=== PATIENT | male | born 1965 | race Caucasian/White ===

== ENCOUNTER 2017-09-29 10:12 | Day surgery (SDC) | payer OTHER ==
[2017-09-21 10:59] VITALS: BMI 19.0
--- NOTE | 2017-09-21 11:34 | PAT Medication Instructions ---
Service Date Sep 21, 2017. Current Home Medication List Naproxen (Aleve), 2 TABS PO DAILY PRN for headache Medication Instructions For Your Scheduled Surgery - Hold the following medications per your surgeon's instructions: Naproxen (Aleve), 2 TABS PO DAILY PRN for headache If you have any questions please call us at [phone] or [phone] or [phone]
--- NOTE | 2017-09-21 12:08 | DIAGNOSTIC IMAGING REPORT ---
CHEST 2 VIEWS ROUTINE CLINICAL HISTORY: Preoperative chest COMPARISON STUDY: No previous studies for comparison. FINDINGS: The cardiac and mediastinal contours are normal. There is no evidence of focal pulmonary consolidation. There is no evidence of failure. No pleural effusions are visualized.[ The patient is mildly hyperinflated IMPRESSION: No active disease in the chest. Electronically signed by: Jono Peraza M.D. 09/21/2017 12:06 PM Dictated Date/Time: 09/21/2017 12:06 PM
[2017-09-21 12:18] LABS: BASO % 1.4 %; COMPLETE YES; EOS % 1.5 %; HEMATOCRIT 41.1 % (42-52); IG% 0.1 %; LYMPH % 28.1 %; LYMPH ABS # 2.01 K/uL (1.2-3.4); MEAN CELL VOLUME 92.4 fL (80-100); MEAN CORPUSCULAR HEMOGLOBIN 31.9 pg (25-34); MEAN CORPUSCULAR HGB CONC 34.5 g/dl (32-36); MEAN PLATELET VOLUME 9.6 fL (7.4-10.4); MONO % 7.8 %; NEUT % 61.1 %; PLATELET COUNT 261 K/uL (130-400); RED BLOOD COUNT 4.45 M/uL (4.7-6.1); WHITE BLOOD COUNT 7.15 K/uL (4.8-10.8)
[2017-09-21 14:10] LABS: BUN/CREATININE RATIO 23.3 (10-20); CALCIUM 8.8 mg/dl (8.5-10.1); CREATININE 0.76 mg/dl (0.60-1.40); POTASSIUM 4.1 mmol/L (3.5-5.1)
[~2017-09-29] VITALS: Ht 180.3 cm; Wt 64.0 kg
[~2017-09-29 10:12] MED LIST: CIPROFLOXACIN / D5W 400 MG IV SCH; LACTATED RINGER'S 1000ML 1,000 ML IV SCH; NAPR1TAB9 PO
[2017-09-29 10:35] VITALS: BP 111/63; PULSE 59; TEMP 36.5; O2SAT 99; Ht 180.3 cm; Wt 64.0 kg
[2017-09-29] MEDS ORDERED: PROPOFOL IV EMULSION 10 MG/ML 20 ML VIAL IV ONE (10:42)
[2017-09-29] MEDS ORDERED: DEXAMETHASONE SOD INJ 4 MG/ML VIAL ONE (10:42)
[2017-09-29] MEDS ORDERED: ONDANSETRON INJ 2 MG/ML 2 ML VIAL ONE (10:42)
[2017-09-29] MEDS ORDERED: LIDOCAINE HCL 2% 2 ML VIAL (20MG/ML) ONE (10:42)
[2017-09-29] MEDS ORDERED: MIDAZOLAM HCL 1 MG/ML 2ML VIAL ONE (10:43)
[2017-09-29] MEDS ORDERED: FENTANYL CITRATE INJ 50 MCG/1 ML 2 ML VIAL ONE (10:43)
[2017-09-29] MEDS ORDERED: NALOXONE HCL 0.4 MG/1 ML VIAL/CARP IV PRN (12:15)
[2017-09-29] MEDS ORDERED: ATROPINE SULFATE 0.1 MG/ML 5ML SYR IV PRN (12:15)
[2017-09-29] MEDS ORDERED: FLUMAZENIL 0.1 MG/1 ML 10 ML VIAL IV PRN (12:15)
[2017-09-29] MEDS ORDERED: PROMETHAZINE HCL INJ 12.5 MG in SODIUM CHLORIDE 0.9% 50ML 50 ML IV PRN (12:15)
[2017-09-29] MEDS ORDERED: LABETALOL HCL IV 5 MG/ML 20ML IV PRN (12:15)
[2017-09-29] MEDS ORDERED: ONDANSETRON INJ 2 MG/ML 2 ML VIAL IV PRN (12:15)
[2017-09-29] MEDS ORDERED: EpHEDrine SULFATE INJ 50 MG/ML AMP IV PRN (12:15)
[2017-09-29] MEDS ORDERED: FENTANYL CITRATE INJ 50 MCG/1 ML 2 ML VIAL IV PRN (12:15)
--- NOTE | 2017-09-29 13:07 | History & Physical Bridge Note ---
H&P Re-Evaluation Bridge Note: I have examined the patient, reviewed the History & Physical and in the interval since the performance of the History & Physical I have noted the following changes of clinical significance: No changes noted
[2017-09-29] MEDS ORDERED: CONRAY 30% 150ML BOTTLE ONE (13:15)
[2017-09-29] MEDS ORDERED: CIPR-255 PO (13:55)
[2017-09-29] MEDS ORDERED: ACET-749 PO (13:55)
[2017-09-29] MEDS ORDERED: PHEN-775 PO (13:55)
[2017-09-29] MEDS ORDERED: PHENAZOPYRIDINE HCL 200 MG TAB PO STA (13:57)
[2017-09-29] MEDS ORDERED: SODIUM CHLORIDE 0.9% 1000ML 1,000 ML IV SCH (13:57)
--- NOTE | 2017-09-29 13:57 | Discharge Instructions ---
Discharge Instructions Date of Service Sep 29, 2017. Admission Reason for Admission: Irritable voiding pattern Discharge Discharge Diagnosis / Problem: irritable voiding pattern Discharge Goals Goal(s): Decrease discomfort, Improve function, Increase independence, Improve disease control, Prevent Disease Progression Activity Recommendations Activity Limitations: resume your previous activity Lifting Limitations: none Exercise/Sports Limitations: none May Resume Sexual Activity: when tolerated Shower/Bathe: no limitations Driving or Machine Use: resume 1 day after discharge . Instructions / Follow-Up Instructions / Follow-Up Please keep your previously scheduled follow up appointment. Discharge Diet Recommended Diet: Regular Diet Procedures Procedures Performed: Cystoscopy, Bladder Biopsies, Fulgeration Pending Studies Studies pending at discharge: no Medical Emergencies . Who to Call and When: Medical Emergencies: If at any time you feel your situation is an emergency, please call 911 immediately. . Non-Emergent Contact Non-Emergency issues call your: Urologist Call Non-Emergent contact if: you have a fever, temperature is above 101.5, your pain is not controlled, your pain is worsening . . "Provider Documentation" section prepared by Karlo Cabral. . VTE Core Measure Inpt VTE Proph given/why not?: Treatment not indicated [place] Drug Monitoring Program Search Results: patient reviewed within database, no issues identified
[2017-09-29] MEDS ORDERED: OXYCODONE/ACETAMINOPHEN 5-325 TAB PO PRN ×2 (14:00)
--- NOTE | 2017-09-29 14:03 | [facility] Operative Report ---
Operative Report Operative Date Sep 29, 2017. Pre-Operative Diagnosis Hematuria, Urinary Urgency Post-Operative Diagnosis Hematuria, Urinary Urgency Procedure(s) Performed Cystoscopy, Bladder Biopsies, Fulgeration Surgeon Dr. Navarro Solar System Designer Surgeon(s) none Estimated Blood Loss 0 cc Findings As per dictation Specimens A: Right lateral wall bladder biopsy B: Posterior wall bladder biopsy Drains none Anesthesia Gen. Complication(s) None Disposition Recovery Room / PACU (stable) Indications Significant irritative voiding dysfunction - with findings on in office cystoscopy concerning for malignancy Description of Procedure The patient was identified in the preoperative holding area, consents reviewed and completed, the patient received appropriate preoperative antibiotics, and was transported to the operating suite. Upon arrival he received general anesthesia. He was placed in dorsal lithotomy position and sterilely prepped and draped in standard fashion. I begin by passing a 24 Green[place]ic resectoscope visual obturator and 30 lens. Full inspection of the bladder was carried out utilizing both a 30 and 70 lens. This revealed no papillary tumors, however he has an erythematous patch adjacent to the right ureteral orifice. There is slight edema of this area without erosion or ulceration. The area in total was proximally 2-3 cm across. He additionally has a separate area on the posterior bladder wall with a similar appearance - 1 cm. After inspecting these areas, I exchanged the visual obturator for a biopsy device. Biopsies were taken from the right lateral wall and sent as a single specimen. Additional biopsies were taken from the posterior wall - sent as a separate specimen. I then passed a loop and fulgurated the base of the biopsy sites as well as the remaining erythematous areas. Full inspection was carried out again evaluating the entire bladder to ensure that there were no retained or missed areas of concern. Hemostasis was excellent, and the bladder was decompressed and the case concluded. He was extubated and taken to the PACU in stable condition I attest to the content of the Intraoperative Record and any orders documented therein. Any exceptions are noted below.
[2017-09-29 14:42] VITALS: BP 126/78; PULSE 58; TEMP 36.5; O2SAT 97
--- NOTE | 2017-09-29 14:58 | Anesthesiology Progress Note ---
Anesthesia Post Op Note Date & Time Sep 29, 2017 at 14:58 Vital Signs Pain Intensity: 3 Vital Signs Past 12 Hours Date Time Temp Pulse Resp B/P (MAP) Pulse Ox O2 Delivery O2 Flow Rate FiO2 09/29/17 14:35 36.1 48 13 127/82 96 Nasal Cannula 09/29/17 14:30 36.1 56 15 132/81 97 Nasal Cannula 09/29/17 14:20 51 12 121/87 98 Nasal Cannula 09/29/17 14:15 76 14 98 Nasal Cannula 09/29/17 14:05 42 12 119/67 100 Oxymask 10 09/29/17 13:57 36.6 42 10 98/63 100 Oxymask 10 09/29/17 10:35 36.5 59 18 111/63 (79) 99 Room Air Notes Mental Status: alert / awake / arousable, participated in evaluation Pt Amnestic to Procedure: Yes Nausea / Vomiting: adequately controlled Pain: adequately controlled Airway Patency, RR, SpO2: stable & adequate BP & HR: stable & adequate Hydration State: stable & adequate Anesthetic Complications: no major complications apparent
[2017-09-29 15:15] VITALS: BP 118/77; PULSE 64; TEMP 36.5; O2SAT 98
== END 2017-09-29 15:30 | disposition home or self-care (01) ==
LOC: C.ACU 10:12
PROVIDERS: ATTEND Urology
DX: D09.0 Carcinoma in situ of bladder (principal); R39.15 Urgency of urination; R30.0 Dysuria; R31.29 Other microscopic hematuria; N40.0 Benign prostatic hyperplasia without lower urinary tract symptoms; J44.9 Chronic obstructive pulmonary disease, unspecified; Z87.442 Personal history of urinary calculi; Z87.440 Personal history of urinary (tract) infections; Z83.79 Family history of other diseases of the digestive system; Z82.49 Family history of ischemic heart disease and other diseases of the circulatory system; Z84.1 Family history of disorders of kidney and ureter; Z83.3 Family history of diabetes mellitus; F17.210 Nicotine dependence, cigarettes, uncomplicated

== ENCOUNTER → 2017-10-28 | Outpatient (CLI) | payer OTHER ==
[~2017-10-28] MED LIST changes: +ACET-749 PO; +CIPR-255 PO; -CIPROFLOXACIN / D5W 400 MG IV SCH; -LACTATED RINGER'S 1000ML 1,000 ML IV SCH
== END | disposition home or self-care (01) ==
LOC: C.LABPBG 15:34
PROVIDERS: ATTEND Nurse Practitioner Adult Health
DX: R30.0 Dysuria (principal)

== ENCOUNTER → 2018-01-04 | Outpatient (CLI) | payer OTHER | END | disposition home or self-care (01) | LOC: C.PATHSPEC 11:17 | PROVIDERS: ATTEND Urology | DX: D09.0 Carcinoma in situ of bladder (principal) ==

== ENCOUNTER 2020-08-26 12:16 | Inpatient (IN) ==
--- NOTE | 2020-08-26 12:43 | Emergency Department Note ---
History of Present Illness General Chief complaint: Back Injury/Pain Stated complaint: VERY BAD BACK PAIN Time Seen by Provider: 08/26/20 12:31 History of Present Illness Maximum Pain Intensity: 9 This is a 55-year-old male that presents to the emergency department via private vehicle with complaints of "very bad back pain". The patient notes a history of bladder cancer. Last biopsy was 3 months ago. He notes that a few days ago he began with atraumatic right lower back pain. It does not radiate. It is not radicular in nature. It does not traverse into the legs. No lower extremity weakness, bowel or bladder incontinence, numbness or tingling in the genital region. Overall discomfort appears worse with movement and ambulation. No symptoms consistent with cauda equina syndrome. Pain was worse last night and he notes that it was excruciating discomfort. Home Medications Home Medications Medication Instructions Recorded Confirmed Type naproxen sodium 220 mg capsule 220 mg PO BID PRN cap 07/05/19 08/26/20 History tamsulosin 0.4 mg PO HS 06/20/20 08/26/20 History ammonium lactate 12 % lotion See Rx Instructions TOPICAL BID 07/13/20 08/26/20 Rx PRN #396 g Allergies Allergy/AdvReac Type Severity Reaction Status Date / Time No Known Drug Allergies Allergy Verified 08/21/20 11:19 Past Med/Surg History Medical History Benign prostatic hyperplasia with urinary obstruction Dysuria Hemorrhoids History of bladder cancer h/o BCG treatment Migraine headache Nodule of middle lobe of right lung Pulmonary emphysema Does not use any inhalers, pt feels asymptomatic Urinary urgency Vitamin D deficiency Surgical History History of appendectomy History of biopsy of bladder History of colonoscopy History of cystoscopy History of esophagogastroduodenoscopy (EGD) Family History Father Coronary heart disease Sister Cardiovascular disease S/P coronary artery stent placement Mother Kidney disease COPD (chronic obstructive pulmonary disease) Gallbladder disease Brother Kidney stones Hypertension Grandmother (Maternal) Diabetes Other No family history of adverse response to anesthesia Social History Smoking Status: Former smoker Second Hand Exposure: No; Do You Dip or Chew Tobacco: No; Tobacco Cessation Education Requested by Patient: No Hx Alcohol Use: No Hx Substance Use: No Preferred Language: Ghanaian Communication Ability: Effective Manager Forms Required: No Beliefs That Will Affect Care: None marital status: Current Living Situation: Spouse current occupational status: employed 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 Other Information That Helps Us Care for You: No Feels Safe at Home: Yes Safety Concerns: Feels Safe At This Time Childhood Exposure to Second-Hand Smoke: Yes Dental Care, Regularly: Yes Physical Activity Frequency: Does not Exercise Seatbelt Use: always Sunscreen Use: Yes Assistive Devices: None Assistive Devices Comment: dentures at home Review of Systems A total of 10 systems reviewed and were otherwise negative Physical Exam Vital Signs Vital Signs - 24 hr 08/26/20 12:22 08/26/20 13:53 08/26/20 15:55 Temperature 36.5 C Temperature Source Oral Pulse Rate 96 H Pulse Rate [Finger] 82 80 Pulse Rate from SpO2 Sensor Respiratory Rate 20 20 16 Respiratory Effort / Characteristics Non-Labored Non-Labored Spontaneous Non-Labored Spontaneous Respiratory Depth Normal Normal Normal Respiratory Pattern Regular Regular Blood Pressure 121/79 Blood Pressure [Right Arm] 147/86 H 134/80 Blood Pressure Mean 93 Blood Pressure Mean [Right Arm] 106 98 Blood Pressure Position Sitting Pulse Oximetry 98 97 97 Oxygen Delivery Method Room Air Room Air Room Air Sepsis Recent Fever Within 48 Hours No Sepsis New/Unexplained Change in Mental Status No Sepsis Action Taken by Nursing No Action Required 08/26/20 16:30 Temperature Temperature Source Pulse Rate 81 Pulse Rate [Finger] Pulse Rate from SpO2 Sensor 80 Respiratory Rate 13 Respiratory Effort / Characteristics Respiratory Depth Respiratory Pattern Blood Pressure 129/82 Blood Pressure [Right Arm] Blood Pressure Mean 93 Blood Pressure Mean [Right Arm] Blood Pressure Position Pulse Oximetry 97 Oxygen Delivery Method Sepsis Recent Fever Within 48 Hours Sepsis New/Unexplained Change in Mental Status Sepsis Action Taken by Nursing VITAL SIGNS - Vital signs and nursing notes were reviewed. Stable and afebrile. GENERAL -55-year-old male appearing his stated age who is in no acute distress. Communicates well with provider and answers questions appropriately. SKIN - Without rashes. HEAD - NC/AT. EYES - Sclera anicteric. LUNGS - Chest wall symmetric without accessory muscle use, intercostals retractions, or central cyanosis. Normal vesicular breath sounds CTA B/L. No wheezes, rales, or rhonchi appreciated. CARDIAC - RRR with S1/S2. No murmur, rubs, or gallops appreciated. ABDOMEN - Abdominal contour normal without pulsations or visible masses. BS normoactive all four quadrants. No tenderness, palpable masses, hepatosplenomegaly, or ascites noted. MUSCULOSKELETAL: No reproducible tenderness palpation overlying the paraspinous musculature of the spine or spinous processes. EXTREMITIES - No clubbing or peripheral cyanosis. No pretibial edema present. + 5/5 strength noted in UE/LE bilaterally. NEUROLOGIC - Cranial nerves II through XII grossly intact. PSYCH - A&O, and cooperates fully with examiner. Pt is very pleasant and interacts well with examiner. Course Administered Medications Sodium Chloride (Nss 1000ml) 1,000 mls @ 100 mls/hr IV .Q10H DIA Stop: 08/27/20 15:02 Last Admin: 08/26/20 19:55 Dose: 100 mls/hr Documented by: [id number] Tamsulosin HCl (Tamsulosin Hcl 0.4 Mg Cap) 0.4 mg PO HS DIA Stop: 09/25/20 20:59 Last Admin: 08/26/20 20:46 Dose: 0.4 mg Documented by: [id number] Discontinued Medications Ceftriaxone Sodium (Rocephin) 1,000 mg in 50 mls @ 100 mls/hr IV NOW STA Stop: 08/26/20 15:57 Last Infusion: 08/26/20 16:30 Dose: 0 mls/hr Documented by: [id number] Admin: 08/26/20 16:00 Dose: 100 mls/hr Documented by: [id number] Ioversol (Ioversol 100ml) 94 ml IV ONCE ONE Stop: 08/26/20 14:01 Last Admin: 08/26/20 14:00 Dose: 94 ml Documented by: [id number] Morphine Sulfate (Morphine Sulfate 4 Mg/Ml 1 Ml Carp\\Vial) 4 mg IV NOW STA Stop: 08/26/20 13:15 Last Admin: 08/26/20 13:47 Dose: 4 mg Documented by: [id number] Morphine Sulfate (Morphine Sulfate 4 Mg/Ml 1 Ml Carp\\Vial) 4 mg IV NOW STA Stop: 08/26/20 18:12 Last Admin: 08/26/20 18:19 Dose: 4 mg Documented by: [id number] Ondansetron HCl (Ondansetron Inj 2 Mg/Ml 2 Ml Vial) 4 mg IV NOW STA Stop: 08/26/20 13:15 Last Admin: 08/26/20 13:47 Dose: 4 mg Documented by: [id number] Medical Decision Making Laboratory Data Result diagrams: 08/26/20 13:05 08/26/20 13:05 Lab Results 08/26/20 08/26/20 08/26/20 Range/Units 13:05 13:05 13:05 WBC 10.96 H (4.8-10.8) K/uL RBC 4.45 L (4.7-6.1) M/uL Hgb 14.1 (14.0-18.0) g/dL Hct 41.4 L (42-52) % MCV 93.0 (80-100) fL MCH 31.7 (25-34) pg MCHC 34.1 (32-36) g/dL RDW Std Deviation 44.5 (36.4-46.3) fL RDW Coeff of Collin 13.1 (11.5-14.5) % Plt Count 263 (130-400) K/uL MPV 9.9 (7.4-10.4) fL Immature Gran % (Auto) 0.2 % Neut % (Auto) 83.2 % Lymph % (Auto) 7.4 % [facility] % (Auto) 8.8 % Eos % (Auto) 0.1 % Baso % (Auto) 0.3 % Neut # (Auto) 9.13 H (1.4-6.5) K/uL Lymph # (Auto) 0.81 L (1.2-3.4) K/uL [facility] # (Auto) 0.96 H (0.11-0.59) K/uL Eos # (Auto) 0.01 (0-0.5) K/uL Baso # (Auto) 0.03 (0-0.2) K/uL Immature Gran # (Auto) 0.02 (0.00-0.02) K/uL Sodium 137 (136-145) mmol/L Potassium 3.9 (3.5-5.1) mmol/L Chloride 106 (98-107) mmol/L Carbon Dioxide 27 (21-32) mmol/L Anion Gap 4.0 (3-11) BUN 17 (7-18) mg/dl Creatinine 1.07 (0.6-1.4) mg/dl Est Cr Clr Drug Dosing 73.2 ml/min Est GFR ( Amer) 88.8 Est GFR (Non-Af Amer) 76.7 BUN/Creatinine Ratio 16.3 (10-20) Glucose 123 H (70-99) mg/dl Calcium 9.6 (8.5-10.1) mg/dl Magnesium 2.2 (1.8-2.4) mg/dl Total Bilirubin 0.5 (0.2-1) mg/dl AST 17 (15-37) U/L ALT 16 (12-78) U/L Alkaline Phosphatase 112 (45-117) U/L Total Protein 8.2 (6.4-8.2) gm/dl Albumin 3.9 (3.4-5.0) gm/dl Globulin 4.3 H (2.5-4.0) gm/dl Albumin/Globulin Ratio 0.9 (0.9-2) Lipase 60 L (73-393) U/L Urine Color Yellow Urine Appearance Turbid A (Clear) Urine pH 5.0 (4.5-7.5) Ur Specific [place] 1.020 (1.000-1.030) Urine Protein 2+ H (Negative) Urine Glucose (UA) Negative (Negative) Urine Ketones Negative (Negative) Urine Blood 3+ H (Negative) Urine Nitrite Positive A (Negative) Urine Bilirubin Negative (Negative) Urine Urobilinogen Negative (Negative) Ur Leukocyte Esterase 2+ H (Negative) Urine WBC (Auto) >30 H (0-5) /hpf Urine RBC (Auto) 10-30 H (0-4) /hpf U Hyaline Cast (Auto) 1-5 (0-5) /lpf U Epithel Cells (Auto) 5-10 H (0-5) /lpf Urine Bacteria (Auto) 4+ H (Negative) COVID-19 Eval Order Hepatitis C Ab Screen (Neg) SARS-CoV-2, RNA, NAAT (NEGATIVE) 08/26/20 08/26/20 08/26/20 Range/Units 13:05 16:00 16:00 WBC (4.8-10.8) K/uL RBC (4.7-6.1) M/uL Hgb (14.0-18.0) g/dL Hct (42-52) % MCV (80-100) fL MCH (25-34) pg MCHC (32-36) g/dL RDW Std Deviation (36.4-46.3) fL RDW Coeff of Collin (11.5-14.5) % Plt Count (130-400) K/uL MPV (7.4-10.4) fL Immature Gran % (Auto) % Neut % (Auto) % Lymph % (Auto) % [facility] % (Auto) % Eos % (Auto) % Baso % (Auto) % Neut # (Auto) (1.4-6.5) K/uL Lymph # (Auto) (1.2-3.4) K/uL [facility] # (Auto) (0.11-0.59) K/uL Eos # (Auto) (0-0.5) K/uL Baso # (Auto) (0-0.2) K/uL Immature Gran # (Auto) (0.00-0.02) K/uL Sodium (136-145) mmol/L Potassium (3.5-5.1) mmol/L Chloride (98-107) mmol/L Carbon Dioxide (21-32) mmol/L Anion Gap (3-11) BUN (7-18) mg/dl Creatinine (0.6-1.4) mg/dl Est Cr Clr Drug Dosing ml/min Est GFR ( Amer) Est GFR (Non-Af Amer) BUN/Creatinine Ratio (10-20) Glucose (70-99) mg/dl Calcium (8.5-10.1) mg/dl Magnesium (1.8-2.4) mg/dl Total Bilirubin (0.2-1) mg/dl AST (15-37) U/L ALT (12-78) U/L Alkaline Phosphatase (45-117) U/L Total Protein (6.4-8.2) gm/dl Albumin (3.4-5.0) gm/dl Globulin (2.5-4.0) gm/dl Albumin/Globulin Ratio (0.9-2) Lipase (73-393) U/L Urine Color Urine Appearance (Clear) Urine pH (4.5-7.5) Ur Specific [place] (1.000-1.030) Urine Protein (Negative) Urine Glucose (UA) (Negative) Urine Ketones (Negative) Urine Blood (Negative) Urine Nitrite (Negative) Urine Bilirubin (Negative) Urine Urobilinogen (Negative) Ur Leukocyte Esterase (Negative) Urine WBC (Auto) (0-5) /hpf Urine RBC (Auto) (0-4) /hpf U Hyaline Cast (Auto) (0-5) /lpf U Epithel Cells (Auto) (0-5) /lpf Urine Bacteria (Auto) (Negative) [facility] (Neg) SARS-CoV-2, RNA, NAAT NEGATIVE (NEGATIVE) Imaging Data Radiologist's Impression: CT abd pelvis IV con only CLINICAL HISTORY: Low back pain. History of bladder carcinoma. COMPARISON STUDY: 11/06/2017 TECHNIQUE: Patient was scanned in a dynamic helical fashion during intravenous administration of 54 cc of Optiray 320. A dose lowering technique was utilized adhering to the principles of ALARA. CT DOSE: 541.14 mGy.cm FINDINGS: Lower chest: The heart is normal in size and configuration, without pericardial effusion. The lung bases and pleural spaces are clear. Liver: The contrast-enhanced liver is normal in size, contour, and attenuation. There is no intrahepatic biliary ductal dilatation. The hepatic veins and portal veins are patent. Gallbladder: Unremarkable. Spleen: Normal in size and attenuation. Pancreas: Unremarkable. Adrenal glands: Unremarkable. Kidneys: There is a diminished right-sided nephrogram. There is right-sided hydronephrosis and hydroureter. There is mild uroepithelial enhancement. No calculi are visualized. There is soft tissue density at the level of the distal right ureter. Neoplasm cannot be excluded. Urological consultation is recommended in follow-up. Bowel: There are no transition zones to indicate bowel obstruction. The appendix appears normal. There is no evidence of acute diverticulitis. There is moderate right colonic stool. Peritoneum: There is no intraperitoneal free air or abdominal ascites. Vasculature: The abdominal aorta is normal in course and caliber. Adenopathy: None. Pelvic viscera: There is prostatomegaly. There is bladder wall thickening. Skeletal structures: No destructive osseous lesions are seen. IMPRESSION: 1. Right-sided hydronephrosis and hydroureter. There is a slightly diminished right-sided nephrogram and mild right-sided perinephric stranding 2. Subtle right-sided uroepithelial enhancement. Coexistent infection cannot be excluded 3. No obstructing calculi identified. There is right ureteral soft tissue prominence at the level of the ureter vesicle junction, and neoplasm cannot be excluded. Urological consultation is recommended in follow-up 4. Bladder wall thickening and prostatomegaly 5. No evidence of bowel obstruction. No evidence of free air. Normal appendix. No evidence of acute diverticulitis. ACT 112: Negative or not required by law. Electronically signed by: Jono Peraza M.D. 08/26/2020 2:[address] lumbar spine wo con CT DOSE: CLINICAL HISTORY: Low back pain. TECHNIQUE: Helical images were acquired in transverse plane. Reformatted sagittal and coronal images were reviewed. A dose lowering technique was utilized adhering to the principles of ALARA. CONTRAST: No contrast was administered COMPARISON STUDY: None. There is right-sided hydronephrosis and hydroureter FINDINGS: L1-2 level: There is no evidence of significant disc bulge or focal herniation. There is no evidence of spinal or foraminal stenosis. L2-3 level: There is no evidence of significant disc bulge or focal herniation. There is no evidence of spinal or foraminal stenosis. L3-4 level: There is a mild circumferential disc bulge with slight flattening of the anterior thecal sac. There is no significant foraminal narrowing L4-5 level: There is a mild circumferential disc bulge with mild flattening of the anterior thecal sac. There is no significant foraminal narrowing L5-S1 level: There is a minor circumferential disc bulge. There is minimal flattening of the anterior thecal sac. No bony destructive lesions are visualized. There are no fractures. IMPRESSION: 1. Right-sided hydronephrosis and hydroureter 2. No fractures or subluxations identified 3. Mild degenerative changes with mild multilevel disc bulges ACT 112: Negative or not required by law. Electronically signed by: Jono Peraza M.D. 08/26/2020 2:24 PM [facility] Narrative Patient was seen and evaluated as above in room B12. Review was performed of nursing notes and vital signs. I did review pertinent previous visits and patient history. After obtaining a thorough history and physical examination the above work up was performed. He presents to us today with atraumatic right low back pain. In the setting of known bladder malignancy. Vital signs stable. CT scan abdomen pelvis obtained as well as recon of the L-spine. There is concern for UTI/hydronephrosis/obstructive change without ureteral calculi seen therefore cannot rule out neoplasm causing this obstruction. There is white blood cell count elevation minimally at 10.96 without significant anemia. No emergent metabolic disturbance. Urinalysis is concerning for that of UTI. I discussed the finding with the on-call urologist, Dr. Navarro. Patient will require further work-up in the inpatient versus outpatient setting. I discussed this with the patient. Given the degree of pain, requiring IV pain medication, UTI in the setting of obstructive findings it is felt that further evaluation and management in inpatient setting is warranted. A rapid COVID test was recommended by urology pending likely patient requiring cystoscopy. This will likely occur on Thursday of this week. Patient happy with plan of care. Case discussed with the hospitalist. Please refer to further documentation regarding his stay. He was empirically treated with IV Rocephin for the infection. Case was discussed with the attending physician. GCS: 15 In the evaluation and treatment of this patient the following differential diagnosis entertained: Fracture, dislocation, subluxation, cauda equina s yndrome, AAA, diverticulitis, appendicitis, torsion, osteomyelitis, piriformis syndrome, strain, sprain, urinary tract infection, malignancy, among others. Impression & Plan UTI (urinary tract infection), Low back pain, Hydronephrosis with infection Discharge Plan Visit Data Chief Complaint: Back Injury/Pain Stated Complaint: VERY BAD BACK PAIN ED Provider: James Kamara ED Midlevel Provider: Dio Weiner Discharge Problem: UTI (urinary tract infection), Low back pain, Hydronephrosis with infection Patient Disposition: Admitted As Inpatient Condition: Good Discharge Instructions Interventions: ED Discharge Assessment Last Done: 08/26/20 18:20
[2020-08-26 13:14] LABS: Basophils # (auto) 0.03 K/uL (0-0.2); Basophils % (auto) 0.3 %; Eosinophils # (auto) 0.01 K/uL (0-0.5); Eosinophils % (auto) 0.1 %; Hematocrit (blood only) 41.4 % (42-52); Hemoglobin 14.1 g/dL (14.0-18.0); Immature Granulocytes # (auto) 0.02 K/uL (0.00-0.02); Immature Granulocytes % (auto) 0.2 %; Lymphocytes # (auto) 0.81 K/uL (1.2-3.4); Lymphocytes % (auto) 7.4 %; Mean Corpuscular Hemoglobin 31.7 pg (25-34); Mean Corpuscular Hgb Conc 34.1 g/dL (32-36); Mean Platelet Volume 9.9 fL (7.4-10.4); Monocytes # (auto) 0.96 K/uL (0.11-0.59); Monocytes % (auto) 8.8 %; Neutrophils # (auto) 9.13 K/uL (1.4-6.5); Neutrophils % (auto) 83.2 %; Platelet Count 263 K/uL (130-400); RDW Coefficient of Variation 13.1 % (11.5-14.5); RDW Standard Deviation 44.5 fL (36.4-46.3); Red Blood Count 4.45 M/uL (4.7-6.1); White Blood Count 10.96 K/uL (4.8-10.8)
[2020-08-26] MEDS ORDERED: MoRPHine SULFATE 4 MG/ML 1 ML CARP\\VIAL IV STA ×2 (13:14→18:11)
[2020-08-26] MEDS ORDERED: ONDANSETRON INJ 2 MG/ML 2 ML VIAL IV STA (13:14)
[2020-08-26 13:21] LABS: Appearance Urine Turbid (Clear); Bacteria Urine Automated 4+ (Negative); Bilirubin Urine Negative (Negative); Blood Urine 3+ (Negative); Color Urine Yellow; Glucose Urine UA Negative (Negative); Ketones Urine Negative (Negative); Leukocyte Esterase Urine 2+ (Negative); Nitrite Urine Positive (Negative); Protein Urine 2+ (Negative); Urobilinogen Urine Negative (Negative); WBC Urine Automated >30 /hpf (0-5)
[2020-08-26 13:37] LABS: Albumin Level 3.9 gm/dl (3.4-5.0); BUN Creatinine Ratio 16.3 (10-20); Calcium 9.6 mg/dl (8.5-10.1); Creatinine Clr Calc Pharmacy 73.2 ml/min; Est GFR (African American) 88.8; Est GFR (Non-African American) 76.7; Magnesium 2.2 mg/dl (1.8-2.4); Potassium 3.9 mmol/L (3.5-5.1)
[2020-08-26 13:40] LABS: Albumin Globulin Ratio 0.9 (0.9-2); Bilirubin,Total 0.5 mg/dl (0.2-1); Globulin 4.3 gm/dl (2.5-4.0); Total Protein 8.2 gm/dl (6.4-8.2)
[2020-08-26] MEDS ORDERED: IOVERSOL 100ml IV ONE (14:00)
--- NOTE | 2020-08-26 14:24 | CT Scan Report ---
CT abd pelvis IV con only CLINICAL HISTORY: Low back pain. History of bladder carcinoma. COMPARISON STUDY: 11/06/2017 TECHNIQUE: Patient was scanned in a dynamic helical fashion during intravenous administration of 54 c c of Optiray 320. A dose lowering technique was utilized adhering to the principles of ALARA. CT DOSE: 541.14 mGy.cm FINDINGS: Lower chest: The heart is normal in size and configuration, without pericardial effusion. The lung ba ses and pleural spaces are clear. Liver: The contrast-enhanced liver is normal in size, contour, and attenuation. There is no intrahepa tic biliary ductal dilatation. The hepatic veins and portal veins are patent. Gallbladder: Unremarkable. Spleen: Normal in size and attenuation. Pancreas: Unremarkable. Adrenal glands: Unremarkable. Kidneys: There is a diminished right-sided nephrogram. There is right-sided hydronephrosis and hydrou reter. There is mild uroepithelial enhancement. No calculi are visualized. There is soft tissue densi ty at the level of the distal right ureter. Neoplasm cannot be excluded. Urological consultation is r ecommended in follow-up. Bowel: There are no transition zones to indicate bowel obstruction. The appendix appears normal. Ther e is no evidence of acute diverticulitis. There is moderate right colonic stool. Peritoneum: There is no intraperitoneal free air or abdominal ascites. Vasculature: The abdominal aorta is normal in course and caliber. Adenopathy: None. Pelvic viscera: There is prostatomegaly. There is bladder wall thickening. Skeletal structures: No destructive osseous lesions are seen. IMPRESSION: 1. Right-sided hydronephrosis and hydroureter. There is a slightly diminished right-sided nephrogram and mild right-sided perinephric stranding 2. Subtle right-sided uroepithelial enhancement. Coexistent infection cannot be excluded 3. No obstructing calculi identified. There is right ureteral soft tissue prominence at the level of the ureter vesicle junction, and neoplasm cannot be excluded. Urological consultation is recommended in follow-up 4. Bladder wall thickening and prostatomegaly 5. No evidence of bowel obstruction. No evidence of free air. Normal appendix. No evidence of acute d iverticulitis. ACT 112: Negative or not required by law. Electronically signed by: Jono Peraza M.D. 08/26/2020 2:22 PM
--- NOTE | 2020-08-26 14:26 | CT Scan Report ---
CT lumbar spine wo con CT DOSE: CLINICAL HISTORY: Low back pain. TECHNIQUE: Helical images were acquired in transverse plane. Reformatted sagittal and coronal images were reviewed. A dose lowering technique was utilized adhering to the principles of ALARA. CONTRAST: No contrast was administered COMPARISON STUDY: None. There is right-sided hydronephrosis and hydroureter FINDINGS: L1-2 level: There is no evidence of significant disc bulge or focal herniation. There is no evidence of spinal or foraminal stenosis. L2-3 level: There is no evidence of significant disc bulge or focal herniation. There is no evidence of spinal or foraminal stenosis. L3-4 level: There is a mild circumferential disc bulge with slight flattening of the anterior thecal sac. There is no significant foraminal narrowing L4-5 level: There is a mild circumferential disc bulge with mild flattening of the anterior thecal sa c. There is no significant foraminal narrowing L5-S1 level: There is a minor circumferential disc bulge. There is minimal flattening of the anterior thecal sac. No bony destructive lesions are visualized. There are no fractures. IMPRESSION: 1. Right-sided hydronephrosis and hydroureter 2. No fractures or subluxations identified 3. Mild degenerative changes with mild multilevel disc bulges ACT 112: Negative or not required by law. Electronically signed by: Jono Peraza M.D. 08/26/2020 2:24 PM
[2020-08-26] MEDS ORDERED: cefTRIAXone SODIUM 1,000 MG/50 ML BAG IV STA (15:28)
--- NOTE | 2020-08-26 16:34 | History & Physical Report ---
Date of Service August 26, 2020 Assessment & Plan (1) Pyelonephritis: Patient with CVA tenderness, +UA, perinephric stranding concerning for pyelonephritis. He is afebrile, HD stable, non-toxic in appearance although in considerable discomfort. Discussed possiblity of discharge home with a ntibiotics and pain management - patient feels that he would most likely need to return to the ER for pain control and prefers to stay. -Admit to medical -Follow cultures -Ceftriaxone 2gm IV q daily -Morphine 2gm IV q 2 hours as needed for pain -Zofran as needed for nausea -Tylenol as needed for fever Question of soft tissue prominence near ureter, neoplasm not excluded. 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 Currently undergoing intravesicular chemotherapy with gemcitabine -Urology followup outpatient F/E/N - NSS at 100mL/hr x 2 liters, electrolytes WNL, NPO after midnight tonight Ppx - SCDs to bilateral LE, should initiate chemoprophylaxis after cystoscopy if able Code - Full per discussion with patient Dispo - Admitto medical floor Present on Admission?: Yes History of Present Illness Chief Complaint: flank pain Primary Care Provider: DO Lizeth Castillonash López is a 55yo C male with history of bladder CA s/p BCG treatment with recent recurrence. He recently started treatment with intravesical chemotherapy with gemcitabine/docetaxel. He has received two treatments of this, last one on Thursday. Patient follows with Urology - last seen on 07/11/20. He presents today with acute severe low back pain, mostly involving right flank. Pain started two days ago and was initially mild in nature, however, has become more constant and severe. Pain was very severe last night "20/10", associated with nausea and chills. Also with dysuria. He denies fever/cough/SOB/CP. Denies pelvic/suprapubic pain/hematuria. He does have some dysuria. No additional complaints at this time. No concern for Covid exposure. ER Course: Ceftriaxone, Morphine, Zofran Allergies Allergy/AdvReac Type Severity Reaction Status Date / Time No Known Drug Allergies Allergy Verified 08/21/20 11:19 Home Medications Home Medications Medication Instructions Recorded Confirmed Type naproxen sodium 220 mg capsule 220 mg PO BID PRN cap 07/05/19 08/26/20 History tamsulosin 0.4 mg PO HS 06/20/20 08/26/20 History ammonium lactate 12 % lotion See Rx Instructions TOPICAL BID 07/13/20 08/26/20 Rx PRN #396 g Past Med/Surg History Medical History (Updated 08/26/20 @ 21:32 by Jhoana Mckeon DO) Benign prostatic hyperplasia with urinary obstruction Dysuria Hemorrhoids History of bladder cancer h/o BCG treatment Migraine headache Nodule of middle lobe of right lung Pulmonary emphysema Does not use any inhalers, pt feels asymptomatic Urinary urgency Vitamin D deficiency Surgical History History of appendectomy History of biopsy of bladder History of colonoscopy History of cystoscopy History of esophagogastroduodenoscopy (EGD) Family History Father Coronary heart disease Sister Cardiovascular disease S/P coronary artery stent placement Mother Kidney disease COPD (chronic obstructive pulmonary disease) Gallbladder disease Brother Kidney stones Hypertension Grandmother (Maternal) Diabetes Other No family history of adverse response to anesthesia Social History (Updated 07/13/20 @ 15:03 by RODRICK Ferraro) Smoking Status: Former smoker Second Hand Exposure: No; Do You Dip or Chew Tobacco: No; Tobacco Cessation Education Requested by Patient: No Hx Alcohol Use: No Hx Substance Use: No Preferred Language: Albanian Communication Ability: Effective Production Officer Required: No Beliefs That Will Affect Care: None marital status: Current Living Situation: Spouse current occupational status: employed 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 Other Information That Helps Us Care for You: No Feels Safe at Home: Yes Safety Concerns: Feels Safe At This Time Childhood Exposure to Second-Hand Smoke: Yes Dental Care, Regularly: Yes Physical Activity Frequency: Does not Exercise Seatbelt Use: always Sunscreen Use: Yes Assistive Devices: Glasses Assistive Devices Comment: dentures at home Review of Systems Review of Systems: All systems reviewed & are unremarkable except as noted in HPI & below Physical Exam Physical Exam: General: patient resting in bed, moderate distress from pain, NAD, non-toxic in appearance, AA&O x 4 Skin: warm, dry, intact, no rashes or lesions HEENT: NC/AT, PERRL, EOMI, anicteric sclera, conjunctiva without injection, external ear normal to inspection and nontender, nares patent, moist mucus membranes, dentition intact, no oropharyngeal lesions, neck supple, trachea midline, no LAD, no thyromegaly, no JVD Heart: +S1/S2, regular, no m/r/g Lungs: equal air entry bilaterally, no rales/rhonchi/wheezes Abd: +BS, soft, NT/ND, no masses/organomegaly/ascites, +CVA tenderness Ext: warm, 2+ pulses in UE/LE bilaterally, no clubbing/cyanosis or edema Neuro: nonfocal, patient AA&O x 4, speech intact, no facial droop, moving all extremities on command with equal strength 5/5 Results & Data Results & Data ([facility]) Vital Signs (Past 12 Hours) Vital Signs Temp Pulse Pulse Resp BP BP Pulse Ox 08/26/20 15:55 80 16 134/80 97 08/26/20 13:53 82 20 147/86 H 97 08/26/20 12:22 36.5 C 96 H 20 121/79 98 Laboratory Results Lab Results 08/26/20 08/26/20 08/26/20 Range/Units 13:05 13:05 13:05 WBC 10.96 H (4.8-10.8) K/uL RBC 4.45 L (4.7-6.1) M/uL Hgb 14.1 (14.0-18.0) g/dL Hct 41.4 L (42-52) % MCV 93.0 (80-100) fL MCH 31.7 (25-34) pg MCHC 34.1 (32-36) g/dL RDW Std Deviation 44.5 (36.4-46.3) fL RDW Coeff of Collin 13.1 (11.5-14.5) % Plt Count 263 (130-400) K/uL MPV 9.9 (7.4-10.4) fL Immature Gran % (Auto) 0.2 % Neut % (Auto) 83.2 % Lymph % (Auto) 7.4 % Angelina % (Auto) 8.8 % Eos % (Auto) 0.1 % Baso % (Auto) 0.3 % Neut # (Auto) 9.13 H (1.4-6.5) K/uL Lymph # (Auto) 0.81 L (1.2-3.4) K/uL Angelina # (Auto) 0.96 H (0.11-0.59) K/uL Eos # (Auto) 0.01 (0-0.5) K/uL Baso # (Auto) 0.03 (0-0.2) K/uL Immature Gran # (Auto) 0.02 (0.00-0.02) K/uL Sodium 137 (136-145) mmol/L Potassium 3.9 (3.5-5.1) mmol/L Chloride 106 (98-107) mmol/L Carbon Dioxide 27 (21-32) mmol/L Anion Gap 4.0 (3-11) BUN 17 (7-18) mg/dl Creatinine 1.07 (0.6-1.4) mg/dl Est Cr Clr Drug Dosing 73.2 ml/min Est GFR ( Amer) 88.8 Est GFR (Non-Af Amer) 76.7 BUN/Creatinine Ratio 16.3 (10-20) Glucose 123 H (70-99) mg/dl Calcium 9.6 (8.5-10.1) mg/dl Magnesium 2.2 (1.8-2.4) mg/dl Total Bilirubin 0.5 (0.2-1) mg/dl AST 17 (15-37) U/L ALT 16 (12-78) U/L Alkaline Phosphatase 112 (45-117) U/L Total Protein 8.2 (6.4-8.2) gm/dl Albumin 3.9 (3.4-5.0) gm/dl Globulin 4.3 H (2.5-4.0) gm/dl Albumin/Globulin Ratio 0.9 (0.9-2) Lipase 60 L (73-393) U/L Urine Color Yellow Urine Appearance Turbid A (Clear) Urine pH 5.0 (4.5-7.5) Ur Specific Timpson 1.020 (1.000-1.030) Urine Protein 2+ H (Negative) Urine Glucose (UA) Negative (Negative) Urine Ketones Negative (Negative) Urine Blood 3+ H (Negative) Urine Nitrite Positive A (Negative) Urine Bilirubin Negative (Negative) Urine Urobilinogen Negative (Negative) Ur Leukocyte Esterase 2+ H (Negative) Urine WBC (Auto) >30 H (0-5) /hpf Urine RBC (Auto) 10-30 H (0-4) /hpf U Hyaline Cast (Auto) 1-5 (0-5) /lpf U Epithel Cells (Auto) 5-10 H (0-5) /lpf Urine Bacteria (Auto) 4+ H (Negative) COVID-19 Eval Order Hepatitis C Ab Screen (Neg) SARS-CoV-2, RNA, NAAT (NEGATIVE) 08/26/20 08/26/20 08/26/20 Range/Units 13:05 16:00 16:00 WBC (4.8-10.8) K/uL RBC (4.7-6.1) M/uL Hgb (14.0-18.0) g/dL Hct (42-52) % MCV (80-100) fL MCH (25-34) pg MCHC (32-36) g/dL RDW Std Deviation (36.4-46.3) fL RDW Coeff of Collin (11.5-14.5) % Plt Count (130-400) K/uL MPV (7.4-10.4) fL Immature Gran % (Auto) % Neut % (Auto) % Lymph % (Auto) % Angelina % (Auto) % Eos % (Auto) % Baso % (Auto) % Neut # (Auto) (1.4-6.5) K/uL Lymph # (Auto) (1.2-3.4) K/uL Angelina # (Auto) (0.11-0.59) K/uL Eos # (Auto) (0-0.5) K/uL Baso # (Auto) (0-0.2) K/uL Immature Gran # (Auto) (0.00-0.02) K/uL Sodium (136-145) mmol/L Potassium (3.5-5.1) mmol/L Chloride (98-107) mmol/L Carbon Dioxide (21-32) mmol/L Anion Gap (3-11) BUN (7-18) mg/dl Creatinine (0.6-1.4) mg/dl Est Cr Clr Drug Dosing ml/min Est GFR ( Amer) Est GFR (Non-Af Amer) BUN/Creatinine Ratio (10-20) Glucose (70-99) mg/dl Calcium (8.5-10.1) mg/dl Magnesium (1.8-2.4) mg/dl Total Bilirubin (0.2-1) mg/dl AST (15-37) U/L ALT (12-78) U/L Alkaline Phosphatase (45-117) U/L Total Protein (6.4-8.2) gm/dl Albumin (3.4-5.0) gm/dl Globulin (2.5-4.0) gm/dl Albumin/Globulin Ratio (0.9-2) Lipase (73-393) U/L Urine Color Urine Appearance (Clear) Urine pH (4.5-7.5) Ur Specific Timpson (1.000-1.030) Urine Protein (Negative) Urine Glucose (UA) (Negative) Urine Ketones (Negative) Urine Blood (Negative) Urine Nitrite (Negative) Urine Bilirubin (Negative) Urine Urobilinogen (Negative) Ur Leukocyte Esterase (Negative) Urine WBC (Auto) (0-5) /hpf Urine RBC (Auto) (0-4) /hpf U Hyaline Cast (Auto) (0-5) /lpf U Epithel Cells (Auto) (0-5) /lpf Urine Bacteria (Auto) (Negative) COVID-19 Eval Order Covid19 [facility]Now [facility] Hepatitis C Ab Screen Neg (Neg) SARS-CoV-2, RNA, NAAT NEGATIVE (NEGATIVE) Diagnostic Findings CT abd pelvis IV con only CLINICAL HISTORY: Low back pain. History of bladder carcinoma. COMPARISON STUDY: 11/06/2017 TECHNIQUE: Patient was scanned in a dynamic helical fashion during intravenous administration of 54 cc of Optiray 320. A dose lowering technique was utilized adhering to the principles of ALARA. CT DOSE: 541.14 mGy.cm FINDINGS: Lower chest: The heart is normal in size and configuration, without pericardial effusion. The lung bases and pleural spaces are clear. Liver: The contrast-enhanced liver is normal in size, contour, and attenuation. There is no intrahepatic biliary ductal dilatation. The hepatic veins and portal veins are patent. Gallbladder: Unremarkable. Spleen: Normal in size and attenuation. Pancreas: Unremarkable. Adrenal glands: Unremarkable. Kidneys: There is a diminished right-sided nephrogram. There is right-sided hydronephrosis and hydroureter. There is mild uroepithelial enhancement. No calculi are visualized. There is soft tissue density at the level of the distal right ureter. Neoplasm cannot be excluded. Urological consultation is recommended in follow-up. Bowel: There are no transition zones to indicate bowel obstruction. The appendix appears normal. There is no evidence of acute diverticulitis. There is moderate right colonic stool. Peritoneum: There is no intraperitoneal free air or abdominal ascites. Vasculature: The abdominal aorta is normal in course and caliber. Adenopathy: None. Pelvic viscera: There is prostatomegaly. There is bladder wall thickening. Skeletal structures: No destructive osseous lesions are seen. IMPRESSION: 1. Right-sided hydronephrosis and hydroureter. There is a slightly diminished right-sided nephrogram and mild right-sided perinephric stranding 2. Subtle right-sided uroepithelial enhancement. Coexistent infection cannot be excluded 3. No obstructing calculi identified. There is right ureteral soft tissue prominence at the level of the ureter vesicle junction, and neoplasm cannot be excluded. Urological consultation is recommended in follow-up 4. Bladder wall thickening and prostatomegaly 5. No evidence of bowel obstruction. No evidence of free air. Normal appendix. No evidence of acute diverticulitis. ACT 112: Negative or not required by law. Electronically signed by: Jono Peraza M.D. 08/26/2020 2:22 PM Dictated: 08/26/20 1417 Transcribed: 08/26/[address] lumbar spine wo con CT DOSE: CLINICAL HISTORY: Low back pain. TECHNIQUE: Helical images were acquired in transverse plane. Reformatted sagittal and coronal images were reviewed. A dose lowering technique was utilized adhering to the principles of ALARA. CONTRAST: No contrast was administered COMPARISON STUDY: None. There is right-sided hydronephrosis and hydroureter FINDINGS: L1-2 level: There is no evidence of significant disc bulge or focal herniation. There is no evidence of spinal or foraminal stenosis. L2-3 level: There is no evidence of significant disc bulge or focal herniation. There is no evidence of spinal or foraminal stenosis. L3-4 level: There is a mild circumferential disc bulge with slight flattening of the anterior thecal sac. There is no significant foraminal narrowing L4-5 level: There is a mild circumferential disc bulge with mild flattening of the anterior thecal sac. There is no significant foraminal narrowing L5-S1 level: There is a minor circumferential disc bulge. There is minimal flattening of the anterior thecal sac. No bony destructive lesions are visualized. There are no fractures. IMPRESSION: 1. Right-sided hydronephrosis and hydroureter 2. No fractures or subluxations identified 3. Mild degenerative changes with mild multilevel disc bulges ACT 112: Negative or not required by law. Electronically signed by: Jono Peraza M.D. 08/26/2020 2:24 PM Dictated: 08/26/20 1423 Transcribed: 08/26/20 1423 Code Status & VTE Plan Code Status Full VTE Prophylaxis Plan VTE Prophylaxis will be ordered: Yes PG Care Time/CCT Total # of Minutes Spent Total Time Spent with Patient: Total time spent is greater than 50% in coordination of care (as documented) at patient's floor/unit and/or counseling patient: Coding Level of Care Code 48146 Initial Inpt Care Lvl 2 Diagnoses Pyelonephritis N12 Benign prostatic hyperplasia with urinary obstruction N40.1; N13.8 History of bladder cancer Z85.51
[2020-08-26] MEDS ORDERED: ACETAMINOPHEN 325 MG TAB PO PRN (19:03)
[2020-08-26] MEDS ORDERED: MoRPHine SULFATE 2 MG/ML CARP IV PRN (19:03)
[2020-08-26] MEDS ORDERED: DOCUSATE SODIUM 100 MG CAP PO PRN (19:03)
[2020-08-26] MEDS ORDERED: POLYETHYLENE (MIRALAX) 17 GM PACK PO PRN (19:03)
[2020-08-26] MEDS ORDERED: ONDANSETRON INJ 2 MG/ML 2 ML VIAL IV PRN (19:03)
[2020-08-26] MEDS: SODIUM CHLORIDE 0.9% 1000ML 1,000 ML IV SCH (19:55)
[2020-08-26] MEDS: TAMSULOSIN HCL 0.4 MG CAP PO SCH (20:46)
[2020-08-27 05:46] LABS: Basophils # (auto) 0.03 K/uL (0-0.2); Basophils % (auto) 0.3 %; Eosinophils # (auto) 0.03 K/uL (0-0.5); Eosinophils % (auto) 0.3 %; Hematocrit (blood only) 37.6 % (42-52); Hemoglobin 12.9 g/dL (14.0-18.0); Immature Granulocytes # (auto) 0.01 K/uL (0.00-0.02); Immature Granulocytes % (auto) 0.1 %; Lymphocytes # (auto) 0.98 K/uL (1.2-3.4); Lymphocytes % (auto) 11.3 %; Mean Corpuscular Hemoglobin 32.3 pg (25-34); Mean Corpuscular Hgb Conc 34.3 g/dL (32-36); Mean Platelet Volume 9.5 fL (7.4-10.4); Monocytes # (auto) 0.96 K/uL (0.11-0.59); Monocytes % (auto) 11.1 %; Neutrophils # (auto) 6.65 K/uL (1.4-6.5); Neutrophils % (auto) 76.9 %; Platelet Count 215 K/uL (130-400); RDW Coefficient of Variation 13.2 % (11.5-14.5); RDW Standard Deviation 45.7 fL (36.4-46.3); White Blood Count 8.66 K/uL (4.8-10.8)
[2020-08-27] MEDS: SODIUM CHLORIDE 0.9% 1000ML 1,000 ML IV SCH (05:47)
[2020-08-27 06:18] LABS: BUN Creatinine Ratio 16.6 (10-20); Calcium 8.5 mg/dl (8.5-10.1); Est GFR (Non-African American) 95.8; Potassium 4.1 mmol/L (3.5-5.1)
--- NOTE | 2020-08-27 14:23 | Urology Consultation ---
Date of Consultation August 27, 2020 Assessment & Plan (1) UTI (urinary tract infection): Patient on broad-spectrum antibiotics with supportive care and hydration. Has been improving. Is awaiting full culture. Has not had considerable fever or chills. Had some flank pain and discomfort. Patient has a well-known history of bladder cancer. Appears to have a significant cystitis with possible pyelitis. Discussed different concerns and issues. With patient's history of recurrent cancer also discussed possibility of obstruction or other issue. Patient does not feel like he is passed stone. Has seen some minor blood but no major issues or concerns. Otherwise is improving. Continued with supportive care. Imaging was all reviewed interpreted by myself. Patient complicated medical history was reviewed and summarized above. Plan is to continue with supportive care and close monitoring. Patient is improving overall. Has cultures pending. May consider waiting cultures and de- escalating hand planning for outpatient therapy for a few weeks prior to scoping versus proceeding with more urgent or quicker scope in order to fully diagnose. Discussed concerns and issues. Patient is still recovering from UTI-like episode. At this point is happy to continue with supportive care. Plan will be to await culture and continue to monitor. Call if any changes or issues. (2) Hydronephrosis with infection: (3) Carcinoma in situ of bladder: History of Present Illness Attending Physician: Nina Salcedo MD History of Present Illness Well-known patient of Dr. Navarro with recurrent noninvasive bladder cancer with CIS. Patient had a scope recently and was being monitored. Has been considering different options. Patient developed sudden onset of severe burning irritation coming in waves from groin and pelvis. Had significant back and flank issues as well. This has improved since hydrated. Consultation for patient with UTI/Pyelo, discomfort, and ill feelings. Patient developed sudden onset of pain into flank going down and radiating into groin and back in waves comes and goes. Can be severe at times. Discussed and reviewed patient's family history for any history of issues, infections, and disease. Also, discussed patient's medical/surgery history especially related to any history of urinary issues or stone disease. Patient was admitted and is undergoing observation with broad spectrum IV antibiotics. \ Overall patient is feeling considerably better has not had fevers or chills. Does have significant burning and irritation which is now resolved. Allergies Allergy/AdvReac Type Severity Reaction Status Date / Time No Known Drug Allergies Allergy Verified 08/21/20 11:19 Home Medications Home Medications Medication Instructions Recorded Confirmed Type naproxen sodium 220 mg capsule 220 mg PO BID PRN cap 07/05/19 08/26/20 History tamsulosin 0.4 mg PO HS 06/20/20 08/26/20 History ammonium lactate 12 % lotion See Rx Instructions TOPICAL BID 07/13/20 08/26/20 Rx PRN #396 g Patient History Medical History Benign prostatic hyperplasia with urinary obstruction Dysuria Hemorrhoids History of bladder cancer h/o BCG treatment Migraine headache Nodule of middle lobe of right lung Pulmonary emphysema Does not use any inhalers, pt feels asymptomatic Urinary urgency Vitamin D deficiency Surgical History History of appendectomy History of biopsy of bladder History of colonoscopy History of cystoscopy History of esophagogastroduodenoscopy (EGD) Family History Father Coronary heart disease Sister Cardiovascular disease S/P coronary artery stent placement Mother Kidney disease COPD (chronic obstructive pulmonary disease) Gallbladder disease Brother Kidney stones Hypertension Grandmother (Maternal) Diabetes Other No family history of adverse response to anesthesia Social History Smoking Status: Former smoker Second Hand Exposure: No; Do You Dip or Chew Tobacco: No; Tobacco Cessation Education Requested by Patient: No Hx Alcohol Use: No Hx Substance Use: No Preferred Language: Liberian Communication Ability: Effective Building And Construction Manager Required: No Beliefs That Will Affect Care: None marital status: Current Living Situation: Spouse current occupational status: employed 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 Patient is well nourished and well kept. HEENT: Normocephalic Atraumatic. Inspection normal. Cranial Nerves 2-12 Grossly intact. Nares are clear. Neck is supple. Normal inspection of face. N ormal inspection of neck. Neurologic: No deficits on inspection. Baseline for motor function and sensory. Psychologic: Normal affect. Respiratory: Nonlabored. No use of accessory muscles. No tachypnea or dyspnea. Cardiovascular: No tachycardia Skin: [place] and Dry. No rashes or visible lesions. Extremities: Moving without issues. No motor deficits on inspection Lymphatics: No edema Abdomen: Soft Non-distended. No acites. No rebound or guarding. Results & Data ([facility]) Vital Signs (Past 12 Hours) Vital Signs Temp Pulse Resp BP Pulse Ox 08/27/20 07:51 36.5 C 61 16 109/66 97 PG Care Time/CCT Total # of Minutes Spent Total Time Spent with Patient: Total time spent is greater than 50% in coordination of care (as documented) at patient's floor/unit and/or counseling patient: Coding Level of Care Code 48347 Inpt Consult Level 5 Diagnoses UTI (urinary tract infection) N39.0 Hydronephrosis with infection N13.6 Carcinoma in situ of bladder D09.0
--- NOTE | 2020-08-27 14:39 | Hospitalist Progress Note ---
Date of Service August 27, 2020 Assessment & Plan (1) Pyelonephritis: Improving - patient admitted with CVA tenderness, +UA, CT with perinephric stranding concerning for pyelonephritis. *Also, question of soft tissue prominence near ureter, neoplasm not excluded. (Hx bladder Ca) * Urine continues to appear turbid, although pain significantly improved * WBC trending down, 10.96k-->8.66k * Continue Ceftriaxone IV (today will be day 2 of therapy) * Culture with gram negative for bacilli --> follow sensitivities (previous E.Coli pansensitive) * Zofran, tylenol prn * Had been NPO for possible scope today, but no plans for surgery at this time * Urology consults -- appreciate assistance --> conservative treatment * Continue to monitor (2) Benign prostatic hyperplasia with urinary obstruction: * Chronic * Continue Flomax * Urology as above (3) History of bladder cancer: * 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 Currently undergoing intravesicular chemotherapy with gemcitabine * Urology followup outpatient (4) DVT prophylaxis: * SCDs * added Lovenox as patient not for OR and managing conversatively for now Dispo: likely discharge tomorrow on oral abx Admission and Anticipated Discharge Date Admission Date: August 26, 2020 Supervising Physician Co-Signing Physician Notes KARLOS Supervision Note: I did not personally see or examine the patient today, but I verified all vinson points of KARLOS De Los Santos's assessment and plan with the following exceptions/additions: None Subjective Patient evaluated this morning. Pain significantly improved. Decreased frequency. Denies dysuria. Discussed awaiting cultures prior to transitioning to oral agent given degree of infection. Awaiting evaluation by Urology later today to see about possible intervention today vs treating infection and having outpatient follow-up. Patient hopeful for discharge but we did discuss likely will need addition day IV abx and consider d/c in AM if continues to improve. Last chemo last Thursday. 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 Review of Systems Review of Systems: All systems reviewed & are unremarkable except as noted in HPI & below Physical Exam Constitutional: WD/WN, vitals as above no acute distress Eyes: + anicteric sclerae and PERRL Neck: trachea midline, no thyromegaly Respiratory: normal respiratory effort, lungs clear to auscultation Cardiovascular: RRR, no murmur, no edema Gastrointestinal (Abdomen): normal bowel sounds, soft, nontender, no hepatosplenomegaly Musculoskeletal: no cyanosis or clubbing, extremities motor strength 5/5 Skin: no rashes, warm and dry Psychiatric: A+Ox3, euthymic affect Genitourinary: no CVA tenderness Lymphatic: no cervical or axillary lymphadenopathy Results & Data Results & Data ([facility]) Vital Signs (Past 12 Hours) Vital Signs Temp Pulse Resp BP Pulse Ox 08/27/20 07:51 36.5 C 61 16 109/66 97 Laboratory Results 08/27/20 08/27/20 08/26/20 Range/Units 05:23 05:23 16:00 WBC 8.66 (4.8-10.8) K/uL RBC 4.00 L (4.7-6.1) M/uL Hgb 12.9 L (14.0-18.0) g/dL Hct 37.6 L (42-52) % MCV 94.0 (80-100) fL MCH 32.3 (25-34) pg MCHC 34.3 (32-36) g/dL RDW Std Deviation 45.7 (36.4-46.3) fL RDW Coeff of Collin 13.2 (11.5-14.5) % Plt Count 215 (130-400) K/uL MPV 9.5 (7.4-10.4) fL Immature Gran % (Auto) 0.1 % Neut % (Auto) 76.9 % Lymph % (Auto) 11.3 % Arthur % (Auto) 11.1 % Eos % (Auto) 0.3 % Baso % (Auto) 0.3 % Neut # (Auto) 6.65 H (1.4-6.5) K/uL Lymph # (Auto) 0.98 L (1.2-3.4) K/uL Arthur # (Auto) 0.96 H (0.11-0.59) K/uL Eos # (Auto) 0.03 (0-0.5) K/uL Baso # (Auto) 0.03 (0-0.2) K/uL Immature Gran # (Auto) 0.01 (0.00-0.02) K/uL Sodium 140 (136-145) mmol/L Potassium 4.1 (3.5-5.1) mmol/L Chloride 109 H (98-107) mmol/L Carbon Dioxide 27 (21-32) mmol/L Anion Gap 4.0 (3-11) BUN 14 (7-18) mg/dl Creatinine 0.87 (0.6-1.4) mg/dl Est Cr Clr Drug Dosing 90.0 ml/min Est GFR ( Amer) 111.0 Est GFR (Non-Af Amer) 95.8 BUN/Creatinine Ratio 16.6 (10-20) Glucose 112 H (70-99) mg/dl Calcium 8.5 (8.5-10.1) mg/dl COVID-19 Eval Order Hepatitis C Ab Screen (Neg) SARS-CoV-2, RNA, NAAT NEGATIVE (NEGATIVE) 08/26/20 08/26/20 Range/Units 16:00 13:05 WBC (4.8-10.8) K/uL RBC (4.7-6.1) M/uL Hgb (14.0-18.0) g/dL Hct (42-52) % MCV (80-100) fL MCH (25-34) pg MCHC (32-36) g/dL RDW Std Deviation (36.4-46.3) fL RDW Coeff of Collin (11.5-14.5) % Plt Count (130-400) K/uL MPV (7.4-10.4) fL Immature Gran % (Auto) % Neut % (Auto) % Lymph % (Auto) % Arthur % (Auto) % Eos % (Auto) % Baso % (Auto) % Neut # (Auto) (1.4-6.5) K/uL Lymph # (Auto) (1.2-3.4) K/uL Arthur # (Auto) (0.11-0.59) K/uL Eos # (Auto) (0-0.5) K/uL Baso # (Auto) (0-0.2) K/uL Immature Gran # (Auto) (0.00-0.02) K/uL Sodium (136-145) mmol/L Potassium (3.5-5.1) mmol/L Chloride (98-107) mmol/L Carbon Dioxide (21-32) mmol/L Anion Gap (3-11) BUN (7-18) mg/dl Creatinine (0.6-1.4) mg/dl Est Cr Clr Drug Dosing ml/min Est GFR ( Amer) Est GFR (Non-Af Amer) BUN/Creatinine Ratio (10-20) Glucose (70-99) mg/dl Calcium (8.5-10.1) mg/dl COVID-19 Eval [facility] C Ab Screen Neg (Neg) SARS-CoV-2, RNA, NAAT (NEGATIVE) PG Care Time/CCT Total # of Minutes Spent Total Time Spent with Patient: Total time spent is greater than 50% in coordination of care (as documented) at patient's floor/unit and/or counseling patient: Coding Level of Care Code 61188 Subseq Hosp Care Lvl 2 Diagnoses Pyelonephritis N12 Benign prostatic hyperplasia with urinary obstruction N40.1; N13.8 History of bladder cancer Z85.51 DVT prophylaxis Z29.9
[2020-08-27] MEDS ORDERED: ENOXAPARIN INJ 40 MG/0.4 ML SYR SQ SCH (16:00)
[2020-08-27] MEDS ORDERED: cefTRIAXone SODIUM 2,000 MG in DEXTROSE 5% 50 ML IV SCH (16:00)
[2020-08-27] MEDS: TAMSULOSIN HCL 0.4 MG CAP PO SCH (20:30)
[2020-08-28 06:03] LABS: Hematocrit (blood only) 37.7 % (42-52); Hemoglobin 12.7 g/dL (14.0-18.0); Mean Corpuscular Hemoglobin 31.2 pg (25-34); Mean Corpuscular Hgb Conc 33.7 g/dL (32-36); Mean Corpuscular Volume 92.6 fL (80-100); Mean Platelet Volume 9.5 fL (7.4-10.4); Platelet Count 209 K/uL (130-400); RDW Standard Deviation 43.8 fL (36.4-46.3); Red Blood Count 4.07 M/uL (4.7-6.1); White Blood Count 5.61 K/uL (4.8-10.8)
[2020-08-28 06:30] LABS: BUN Creatinine Ratio 16.6 (10-20); Calcium 8.3 mg/dl (8.5-10.1); Creatinine Clr Calc Pharmacy 94.3 ml/min; Est GFR (African American) 113.2; Est GFR (Non-African American) 97.7; Potassium 3.8 mmol/L (3.5-5.1)
--- NOTE | 2020-08-28 12:32 | Urology Progress Note ---
Date of Service August 28, 2020 Assessment & Plan (1) UTI (urinary tract infection): Subjectively improved after antibiotics I suspect his UTI has caused most of his acute symptoms That said he does seem to have hydronephrosis and some changes on CT I hope that this is in response to the infection in his intravesical chemotherapy but we will have to reevaluate in the future Would like to continue moving forward with chemo after he completes his antibiotic course I will plan for outpatient follow-up and repeat imaging in several weeks Stable for DC home from a standpoint Admission and Anticipated Discharge Date Admission Date: August 26, 2020 Subjective Subjectively feeling much better No longer having right flank pain He was having dysuria when he arrived at the hospital but this is resolved with antibiotics He is currently in the midst of intravesical chemotherapy He had his most recent treatment last Thursday and began to develop symptoms over the weekend I am uncertain if these 2 are immediately linked or if this was simply an infection on top of his chemo Physical Exam Constitutional: well developed and well nourished Respiratory: no respiratory distress Cardiovascular: Extremities: no pedal edema Gastrointestinal (Abdomen): Inspection/Auscultation: abdomen normal to inspection Results & Data ([facility]) Vital Signs (Past 12 Hours) Vital Signs Temp Pulse Resp BP Pulse Ox 08/28/20 08:08 36.5 C 77 16 117/81 96 PG Care Time/CCT Total # of Minutes Spent Total Time Spent with Patient: Total time spent is greater than 50% in coordinat ion of care (as documented) at patient's floor/unit and/or counseling patient: Coding Level of Care Code 23679 Subseq Hosp Care Lvl 2 Diagnoses UTI (urinary tract infection) N39.0
--- NOTE | 2020-08-28 15:56 | Discharge Summary ---
Date of Service August 28, 2020 Admission HPI Per Admitting Provider Baldemar López is a 55yo C male with history of bladder CA s/p BCG treatment with recent recurrence. He recently started treatment with intravesical chemotherapy with gemcitabine/docetaxel. He has received two treatments of this, last one on Thursday. Patient follows with Urology - last seen on 07/11/20. He presents today with acute severe low back pain, mostly involving right flank. Pain started two days ago and was initially mild in nature, however, has become more constant and severe. Pain was very severe last night "11/09", associated with nausea and chills. Also with dysuria. He denies fever/cough/SOB/CP. Denies pelvic/suprapubic pain/hematuria. He does have some dysuria. No additional complaints at this time. No concern for Covid exposure. ER Course: Ceftriaxone, Morphine, Zofran Admission Exam Per Admitting Provider General: patient resting in bed, moderate distress from pain, NAD, non-toxic in appearance, AA&O x 4 Skin: warm, dry, intact, no rashes or lesions HEENT: NC/AT, PERRL, EOMI, anicteric sclera, conjunctiva without injection, external ear normal to inspection and nontender, nares patent, moist mucus membranes, dentition intact, no oropharyngeal lesions, neck supple, trachea midline, no LAD, no thyromegaly, no JVD Heart: +S1/S2, regular, no m/r/g Lungs: equal air entry bilaterally, no rales/rhonchi/wheezes Abd: +BS, soft, NT/ND, no masses/organomegaly/ascites, +CVA tenderness Ext: warm, 2+ pulses in UE/LE bilaterally, no clubbing/cyanosis or edema Neuro: nonfocal, patient AA&O x 4, speech intact, no facial droop, moving all extremities on command with equal strength 5/5 Principal Diagnosis Hydronephrosis with E. Coli UTI Discharge Exam Constitutional WD/WN, vitals as above no acute distress Eyes + anicteric sclerae and PERRL Neck trachea midline, no thyromegaly Respiratory normal respiratory effort, lungs clear to auscultation Cardiovascular RRR, no murmur, no edema Gastrointestinal (Abdomen) normal bowel sounds, soft, nontender, no hepatosplenomegaly Musculoskeletal no cyanosis or clubbing, extremities motor strength 5/5 Skin no rashes, warm and dry Psychiatric A+Ox3, euthymic affect Genitourinary no CVA tenderness Lymphatic no cervical or axillary lymphadenopathy Discharge Data Allergies Allergy/AdvReac Type Severity Reaction Status Date / Time No Known Drug Allergies Allergy Verified 08/21/20 11:19 Consultations 08/26/20 16:02 ED Decision to Admit Stat 08/26/20 19:03 Consult Urology Routine Ordered Studies 08/26/20 12:38 CT abd pelvis IV con only Stat CT lumbar spine wo con Stat Hospital Course (1) Pyelonephritis: Improved - patient admitted with CVA tenderness, +UA, CT with perinephric stranding concerning for pyelonephritis. *Also, question of soft tissue prominence near ureter, neoplasm not excluded. (Hx bladder Ca with intravesical chemo) * Urine turbid, infected appearing and grew E.Coli, pansensitive * Had been on Ceftriaxone IV while inpatient and sent with prescription for Cipro to complete 7 day course * CTA/P with right-sided hydronephrosis and hydroureter with slightly diminished right-sided nephrogram and mild right-sided perinephric stranding. Subtle right-sided uroepithelial enhancement. Coexistent infection cannot be excluded No obstructing calculi identified. There is right ureteral soft tissue prominence at the level of the ureter vesicle junction, and neoplasm cannot be excluded. Urological consultation is recommended in follow-up. Bladder wall thickening and prostatomegaly. No evidence of bowel obstruction. No evidence of free air. Normal appendix. No evidence of acute diverticulitis. * Urology consulted -- rec treating acute UTI and will follow up scope outpatient * WBC wnl, 5.6k. Afebrile. No further CVA tenderness. 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 Currently undergoing intravesicular chemotherapy with gemcitabine * Urology followup outpatient (4) DVT prophylaxis: * SCDs, Lovenox while inpatient Discharged with Cipro and will need close follow up with Urology for further evaluation of findings on CT as above Total Time Total Time Spent Total Time Spent (In Minutes): 70 Discharge Plan Discharge Items Patient Disposition: Home - Self-Care Reason For Visit: RIGHT FLANK PAIN, HYDRONEPHROSIS Discharge Diagnosis: Pyelonephritis Condition on Discharge: Good Goals: You have been hospitalized for an acute medical problem. During your stay at [facility], we have made an effort to correct the problem that brought you to the hospital while keeping you as comfortable as possible. Medications were used to bring your condition under control and your discharge instructions will include directions for any medications you should take after leaving the hospital. Please make sure you see your Primary Care Provider as part of your follow up plan. Activity: Resume your previous activity Non-emergency contact: Primary Care Provider and Urologist Call non-emergency contact if: you have any medication questions, your symptoms worsen and your pain is concerning for you Follow-up/Referrals: Karlo Navarro MD [Physician] - ('s office will call patient with appointment date and time) Loni Ware DO [Primary Care Provider] - 09/07/20 9:20 am Diet: Regular Addtl Attending Provider Instructions: You have been hospitalized and found to have a urinary tract infection that was backed up into your kidneys. You were treated with IV antibiotics while your urine was sent for analysis and culture and this grew E. Coli. You are being sent home with a prescription of CIPROFLOXACIN. You have already received two days of antibiotics while in the hospital and have an additional 5 days for a total treatment duration of 7 days. This medication is to be taken as follows: 500mg by mouth TWICE daily. Please take all doses and complete the full course to prevent antibiotic resistance. You were seen by Urology during this hospitalization and they are recommending conservative treatment and to treat infection and that you should follow up outpatient for a cystoscopy for further evaluation of possible concerning areas seen on CT imaging given your history of bladder cancer. You should follow up with Dr. Navarro's office in the next week to see about repeating scope and biopsies for further evaluation/repeat imaging in several weeks. Please follow up with your primary care provider to monitor your progress. Please return to the emergency department with any worsening pain, fever, chills, inability to void, or for any other symptoms that are concerning for you. It has been a pleasure being a part of the medical team providing for you while you have been in the hospital. Take care! Pending Studies at Discharge: No Stand-Alone Forms: My [facility] [employer], Smoking Cessation Medications and DC Order Prescriptions: New ciprofloxacin HCl 500 mg tablet 500 mg PO BID Qty: 10 RF: 0 Continued naproxen sodium 220 mg capsule 220 mg PO BID PRN (Reason: pain) RF: 0 ammonium lactate 12 % lotion See Rx Instructions topical BID PRN (Reason: dry skin) Qty: 396 RF: 1 tamsulosin 0.4 mg capsule 0.4 mg PO HS RF: 0 Discharge Orders: Discharge Order (Routine); Ordered 08/28/20 Ordered By: Nina Lopez/Other Patient Handouts: Anatomy of the Male Urinary Tract, Healthy Kidneys, Kidney Problems, Exercise to Help Your Kidneys, How Your Kidneys Work, Understanding Hydronephrosis Admission Data Admit Date/Time: 08/26/20 16:33 Attending Provider: Nina Salcedo Admit Provider: Jhoana Mckeon Primary Care Provider: Loni Ware Other Providers: Jhoana Mckeon ; Karlo Navarro Other Interventions: Discharge Summary Assessment (RN) Last Done: 08/28/20 15:01 Supervising Physician Co-Signing Physician Notes PA Supervision Note: I personally saw and examined the patient. I verified all vinson points and agree with KARLOS De Los Santos with the following exceptions and/or additions: Patient feeling very well. Denies abdominal pain or flank pain. No urinary issues at this time. Denies chest pain or shortness of breath. He feels ready to go home. Remains afebrile. He is tolerating p.o. without nausea or vomiting. Vitals reviewed Gen: AAOx3, NAD HEENT: Anicteric sclerae, EOMI CV: RRR no mgr nl S1S2 Pulm: CTAB no wcr Abd: +BS soft NT ND no masses or hernias Ext: No edema, 2+ DP pulses Skin: No rashes, warm/dry Neuro: Full strength throughout 55-year-old male with history of bladder cancer undergoing intravesicular chemotherapy, here with right-sided hydronephrosis and complicated UTI. Stable for discharged home on oral antibiotics and with close follow-up with urology to further explore possible obstruction of the right ureter which could be metastatic disease from bladder cancer. Coding Level of Care Code D/C Day Management >30 mins Diagnoses Pyelonephritis N12 Benign prostatic hyperplasia with urinary obstruction N40.1; N13.8 History of bladder cancer Z85.51 DVT prophylaxis Z29.9
== END 2020-08-28 15:27 | disposition home or self-care (01) | DRG 690 ==
LOC: ED 12:16 → SUATTDRO 16:33 → 3N 16:33

== ENCOUNTER 2025-03-28 09:03 | Observation (INO) ==
--- NOTE | 2025-03-08 08:56 | Anesthesiology Consultation ---
Date of Service March 08, 2025 Assessment & Plan (1) Encounter for pre-operative examination: Infectious disease screening: Per assessment on 03/06/25- No known recent infectious disease contacts or current infectious disease symptoms. Chart Review Chart Review: Acceptable Risk for Surgery and Patient NOT seen in Pre Admission Testing History Surgery Operation Date: 03/14/25 07:30 Proposed Procedures p Robotic Assisted Laparoscopic Bilateral Distal Ureterectomy with Bilateral Ureteral Reimplant - Anand Navarro MD Height/Weight Height: 5 ft 11 in Weight: 63.503 kg Allergies Allergy/AdvReac Type Severity Reaction Status Date / Time tramadol Allergy Mild Nausea Verified 03/06/25 15:30 Medications Home Medications Medication Instructions Recorded Confirmed Last Taken albuterol sulfate 90 mcg/actuation 2 puff inhalation Q6H PRN 04/16/23 03/06/25 Unknown aerosol inhaler shortness of breath or wheezing #18 grams umeclidinium 62.5 mcg-vilanterol 1 inh inhalation QAM PRN Shortness 04/21/23 03/06/25 Unknown 25 mcg/actuation powdr for Of Breath Or Wheezing inhalation (Anoro Ellipta) diclofenac sodium 1 % topical gel 4 g topical QID PRN pain #100 grams 10/25/24 03/06/25 Unknown (Arthritis Pain (diclofenac)) compress.stocking,knee,reg,med #2 ea 12/20/24 02/06/25 Unknown ergocalciferol (vitamin D2) 1,250 50,000 unit PO WEEKLY #12 caps 02/06/25 03/06/25 Unknown mcg (50,000 unit) capsule acetaminophen 500 mg tablet 1,000 mg PO BID PRN Pain (Scale 03/06/25 03/06/25 Unknown Score 1-3) tamsulosin 0.4 mg capsule 0.4 mg PO HS 03/06/25 03/06/25 Unknown Past Medical History Medical History Anemia of chronic disease Bladder cancer (09/2017) Hx surgery and bcg treatments for past 5 years BPH (benign prostatic hyperplasia) Chronic venous insufficiency Depression Hx, no current meds Hemorrhoids Hx of migraines Occasional Hypertension Nodule of middle lobe of right lung Prediabetes Diet controlled Pulmonary emphysema Stage 3b chronic kidney disease Follows with Dr. Diaz Urethral stricture Varicose veins of both lower extremities Past Family History Family History Father Coronary heart disease Sister Cardiovascular disease S/P coronary artery stent placement Mother Kidney disease COPD (chronic obstructive pulmonary disease) Gallbladder disease Brother Kidney stones Hypertension Grandmother (Maternal) Diabetes Other No family history of adverse response to anesthesia Past Surgical History Surgical History H/O transurethral resection of bladder tumor (TURBT) History of appendectomy History of biopsy of bladder History of colonoscopy History of cystoscopy Multiple, most recent cysto/ureteroscopy (most recent in [facility] office ~ 1 month) History of esophagogastroduodenoscopy (EGD) Hx of tooth extraction All teeth-wears dentures Social History Smoking Status: Former smoker tobacco type: cigarettes Do You Dip or Chew Tobacco: No Smoking End Date: quit 7-8 years ago Hx Alcohol Use: Yes alcohol intake frequency: other Alcohol Intake Frequency Comment: quit 3 years ago Hx Substance Use: No substance use type: does not use Lab Results Anesthesia Preop Results Results Anesthesia Widget: WBC 5.70 K/ul (4.8-10.8) 03/07/25 Hgb 12.8 g/dl (14.0-18.0) L 03/07/25 Hct 38.7 % (42.0-52.0) L 03/07/25 Plt 303 K/uL (130-400) 03/07/25 Na 139 mmol/L (136-145) 03/07/25 K 4.0 mmol/L (3.5-5.1) 03/07/25 Cl 105 mmol/L (98-107) 03/07/25 CO2 30 mmol/L (21-32) 03/07/25 BUN 25 mg/dl (6-23) H 03/07/25 Creat 1.91 mg/dl (0.6-1.4) H 03/07/25 Glucose Level 63 mg/dl (70-99(Fasting)) L 03/07/25 Testing Laboratory Results Urine culture (03/07/25): pending Electrocardiogram Date: 07/16/24 SB at 59bpm. Rightward axis. "Otherwise normal ECG" Stress Test Date: 01/12/23 Normal exercise stress echo without symptoms or evidence of inducible ischemia. 99% MPHR. Grade II DD. RVSP normal. No significant valvular disease. [address] Lung Date: 10/05/24 Stable size and appearance of small nodule in the middle lobe of the right lung. "This may be reevaulated in 12 months." No new or suspicious pulmonary nodule. Moderate pulmonary emphysema. Partial visualization of bilateral hydronephrosis, nonspecific, but less pronounced than on 04/10/2023.
[~2025-03-28 09:03] MED LIST changes: -ACET-749 PO; -CIPR-255 PO; +HEPARIN SOD 5,000 UNIT/0.5 ML VIAL SQ SCH; +LR 15ML/HR IV SCH; -NAPR1TAB9 PO; +ceFAZolin 2000MG 2,000 MG/15 ML SYR IV SCH
[2025-03-28] MEDS: LR 15ML/HR IV SCH (09:33)
[2025-03-28] MEDS: HEPARIN SOD 5,000 UNIT/0.5 ML VIAL SQ SCH ×2 (09:34→20:09)
[2025-03-28] MEDS ORDERED: LIDOCAINE 2% 2 ML VIAL/AMP(20MG/ML) INFIL ONE (09:46)
[2025-03-28] MEDS ORDERED: ROCURONIUM BROMIDE 10 MG/ML 5 ML VIAL IV ONE ×2 (09:46→13:03)
[2025-03-28] MEDS ORDERED: PROPOFOL IV EMULSION 10 MG/ML 20 ML VIAL IV ONE (09:46)
--- NOTE | 2025-03-28 10:52 | History & Physical Report ---
Date of Service March 28, 2025 Assessment & Plan (1) Ureteral stricture: (2) Carcinoma in situ of bladder: (3) Benign prostatic hyperplasia with urinary obstruction: Plan Long history of urothelial carcinoma He has developed bilateral stricturing of the distal ureters without biopsy-pr oven evidence of malignancy Failure of endoscopic management Today he presents for definitive treatment via distal ureterectomy and subsequent direct ureteral reimplant The short segment of stricture should accommodate direct reimplant without psoas hitch Will send frozen section pathology as well as definitive final pathology to ensure there is no residual malignancy Surgery was discussed at length today including the need for postoperative catheter We discussed attempting to perform a refluxing anastomosis that will allow in office surveillance via cystoscopy with extension of the cystoscope into the distal ureters He is very comfortable with the procedure for spare to move onto He is symptomatic with pain on the left, no hydronephrosis he has developed CKD and we hope for this procedure to stabilize his renal function History of Present Illness Primary Care Provider: Loni Ware DO 60-year-old gentleman with a long history of malignancy of the bladder He has done quite well in this regard but is developed scarring and stricturing of his distal ureters with subsequent hydronephrosis and elongation of the ureters He has failed efforts at endoscopic management and is presenting today for definitive management in the form of distal ureterectomy and ureteral reimplant bilaterally The short segment of ureteral stricture should not necessitate psoas hitch but should accommodate direct reimplant Allergies Allergy/AdvReac Type Severity Reaction Status Date / Time tramadol Allergy Mild Nausea Verified 03/28/25 09:26 Home Medications Medication Instructions Recorded Confirmed Type albuterol sulfate 90 mcg/actuation 2 puff inhalation Q6H PRN 04/16/23 03/28/25 Rx aerosol inhaler shortness of breath or wheezing #18 grams umeclidinium 62.5 mcg-vilanterol 1 inh inhalation QAM PRN Shortness 04/21/23 03/28/25 History 25 mcg/actuation powdr for Of Breath Or Wheezing inhalation (Anoro Ellipta) diclofenac sodium 1 % topical gel 4 g topical QID PRN pain #100 grams 10/25/24 03/28/25 Rx (Arthritis Pain (diclofenac)) compress.stocking,knee,reg,med #2 ea 01/28/25 03/17/25 Rx ergocalciferol (vitamin D2) 1,250 50,000 unit PO WEEKLY #12 caps 02/06/25 03/28/25 Rx mcg (50,000 unit) capsule acetaminophen 500 mg tablet 1,000 mg PO BID PRN Pain (Scale 03/06/25 03/28/25 History Score 1-3) tamsulosin 0.4 mg capsule 0.4 mg PO HS 03/06/25 03/28/25 History Past Med/Surg History Problem List Ureteral stricture Anemia of chronic disease Chronic venous insufficiency Encounter for pre-operative examination Stage 3b chronic kidney disease [place] [facility] [place] Prediabetes Varicose veins of both lower extremities Hydronephrosis Carcinoma in situ of bladder (09/2017) Hemorrhoids Vitamin D deficiency Benign prostatic hyperplasia with urinary obstruction Nodule of middle lobe of right lung Under observation x years Pulmonary emphysema Medical History Anemia of chronic disease Bladder cancer (09/2017) Hx surgery and bcg treatments for past 5 years BPH (benign prostatic hyperplasia) Chronic venous insufficiency Depression Hx, no current meds Hemorrhoids Hx of migraines Occasional Hypertension Nodule of middle lobe of right lung Prediabetes Diet controlled Pulmonary emphysema Stage 3b chronic kidney disease Follows with Dr. Diaz Urethral stricture Varicose veins of both lower extremities Surgical History H/O transurethral resection of bladder tumor (TURBT) History of appendectomy History of biopsy of bladder History of colonoscopy History of cystoscopy Multiple, most recent cysto/ureteroscopy (most recent in [facility] office ~ 1 month) History of esophagogastroduodenoscopy (EGD) Hx of tooth extraction All teeth-wears dentures Family History Father Coronary heart disease Sister Cardiovascular disease S/P coronary artery stent placement Mother Kidney disease COPD (chronic obstructive pulmonary disease) Gallbladder disease Brother Kidney stones Hypertension Grandmother (Maternal) Diabetes Other No family history of adverse response to anesthesia Social History Smoking Status: Former smoker Tobacco Type: Cigarettes Age Started Using Tobacco: 14; Age Quit Using Tobacco: 52; packs per day: 1; Smoking End Date: quit 7-8 years ago; Second Hand Exposure: No; Do You Dip or Chew Tobacco: No; Tobacco Cessation Education Requested by Patient: No Hx Alcohol Use: Yes Hx Substance Use: No Preferred Language: Lao Communication Ability: Effective Visual Impairment: Partially Limited Hearing Ability: Normal Compliance Professional Required: No Beliefs That Will Affect Care: None marital status: Current Living Situation: Spouse current occupational status: employed 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 How many Children do You have: 0 Other Information That Helps Us Care for You: No Feels Safe at Home: Yes Safety Concerns: Feels Safe At This Time Childhood Exposure to Second-Hand Smoke: Yes Diet: regular Diet Comment: REGULAR caffeine: Yes during the past year weight has: remained stable Dental Care, Regularly: Yes Physical Activity Frequency: Daily Physical Activity Frequency Comment: active at work and at home Seatbelt Use: always Sunscreen Use: Yes Assistive Devices: Denture - Upper, Denture - Lower and Glasses Physical Exam Constitutional: well developed and well nourished Neck: neck nontender Respiratory: normal respiratory effort; no respiratory distress and does not use accessory muscles Cardiovascular: Rate/Rhythm: regular rate Vessels: radial pulses present Extremities: no edema Gastrointestinal (Abdomen): Inspection/Auscultation: abdomen normal to inspection Percussion/Palpation: abdomen soft; abdomen nontender and no guarding Musculoskeletal: Head/Neck/Chest: normocephalic and head atraumatic Extremities: extremities normal to inspection Skin: no rashes and no lesions Trauma: no evidence of skin trauma Neurologic: awake; not obtunded Speech / Cognition: normal speech Motor/Sensory: no tremor Psychiatric: Orientation: alert and oriented x 3 Genitourinary: no CVA tenderness Lymphatic: no lymphadenopathy Results & Data Vital Signs (Past 12 Hours) Vital Signs Temp Pulse Resp BP Pulse Ox O2 Del Method 03/28/25 09:50 36.4 C L 54 L 18 141/86 H 97 Room Air 03/28/25 09:29 Room Air
[2025-03-28] MEDS ORDERED: ePHEDrine sulfate 50 MG/ML AMP IV PRN (11:10)
[2025-03-28] MEDS ORDERED: HYDROmorphone INJ 2 MG/ML SYR/VIAL IV PRN (11:10)
[2025-03-28] MEDS ORDERED: ATROPINE SULFATE 0.1 MG/ML 10ML SYR IV PRN (11:10)
[2025-03-28] MEDS ORDERED: ONDANSETRON INJ 2 MG/ML 2 ML VIAL IV PRN ×2 (11:10→16:54)
[2025-03-28] MEDS ORDERED: fentaNYL citrate PF 100 MCG/2 ML VIAL IV PRN (11:10)
[2025-03-28] MEDS ORDERED: PROMETHAZINE HCL 6.25 MG in SODIUM CHLORIDE 0.9% 50 ML IV PRN (11:10)
[2025-03-28] MEDS: ceFAZolin 2000MG 2,000 MG/15 ML SYR IV SCH ×2 (11:20→18:40)
[2025-03-28] MEDS ORDERED: fentaNYL citrate PF 100 MCG/2 ML VIAL ONE (11:21)
[2025-03-28] MEDS ORDERED: MIDAZOLAM HCL 1 MG/ML 2ML VIAL ONE (11:21)
[2025-03-28] MEDS ORDERED: DEXAMETHASONE SOD INJ 4 MG/ML VIAL ONE (12:29)
[2025-03-28] MEDS ORDERED: ONDANSETRON INJ 2 MG/ML 2 ML VIAL ONE (12:29)
[2025-03-28] MEDS ORDERED: HYDROmorphone INJ 2 MG/ML SYR/VIAL ONE (12:29)
[2025-03-28] MEDS ORDERED: SUGAMMADEX SODIUM 200 MG/2 ML VIAL IV ONE (14:39)
[2025-03-28] MEDS ORDERED: ceFAZolin 330 MG/ML 1 GM VIAL ONE (14:52)
[2025-03-28] MEDS: ceFAZolin 330 MG/ML 1 GM VIAL IV ONE (15:06)
[2025-03-28] MEDS: SURGICEL ABSORB HEMOSTAT 2IN X 14IN TOP ONE (15:07)
[2025-03-28] MEDS: BUPIVACAINE 0.5 % 5 MG/1 ML MPF 30ML VIAL ONE (15:19)
[2025-03-28] MEDS: BUPIVACAINE LIPOSOME 1.3% 266 MG/20 ML VIAL ONE (15:20)
--- NOTE | 2025-03-28 15:49 | Operative Report ---
PG Post Operative Report Pre & Post Diagnosis Operation Date: 03/28/25 10:40 Pre-Op Diagnosis: Bilateral Hydronephrosis with Ureteral Stricture Post-Op Diagnosis: Bilateral Hydronephrosis with Ureteral Stricture I identified the patient and participated in the time-out.: Yes Procedure Operation Date: 03/28/25 10:40 Actual Procedures p Robotic Assisted Laparoscopic Bilateral Distal Ureterectomy with Bilateral Ureteral Reimplant, bilateral Ureterolysis(Not Applicable) - Anand Navarro MD Surgeon Anand Navarro MD Billing Machine Operator Leila Schwarz Estimated Blood Loss 50 Findings Consistent with Post-Op Diagnosis Specimens 1. Left distal ureter with bladder cuff 2. Right distal ureter with bladder cuff 3. Right distal ureteral margin for frozen sectionpathology returned during the case has an inflammatory reaction without definitive malignancy Description of Procedure Patient was identified in the preoperative holding area and appropriate informed consents were reviewed and completed. He was transported the operating suite and received appropriate preoperative antibiotics in form of Ancef. Adequate general anesthesia was achieved and he was placed in dorsal lithotomy position where he was sterilely prepped and draped in standard fashion. Gross catheter was inserted on the field. Veress needle was passed per umbilicus and his abdomen insufflated to 15 mmHg. I then placed a series of robotic ports with the first intermediate infraumbilical location. I then placed 2 robotic ports lateral to it on the left side, 1 port at the rectus border on the right and a 12 mm port further lateral on the right. Patient was placed in steep Trendelenburg position and the robot was docked. To begin the case I mobilized the sigmoid colon off the left lateral pelvic wall. We emptied the pouch of Blayne and I dissected over the iliac vessels on the left until identified the ureter. Of note, the ureter was grossly abnormal. This was substantially hydronephrotic also very thickened with an inflammatory rind around it. A very carefully dissected around it utilizing combination of bipolar and monopolar electrocautery tracing this distally. We additionally dissected proximally above the level of the vessels to allow appropriate mobilization of the ureter. As a move distally we encountered the vas deferens and was able to preserve the vas and dissect underneath it. We ultimately continued this dissection until somewhat thinning the detrusor muscle and anticipating opening the bladder it self. I then left the left side alone. Of note, I did utilize a vessel loop as well as 3 robotic arms to assist with this dissection. We then turned our attention to the right side. I again opened the peritoneum over top of the vessels. The ureter on the right was similar in appearance to the ureter on the left. This was hydronephrotic with a substantial inflammatory rind and scarring around it. I carefully and slowly worked my way around the ureter and dissected it both proximally and distally. This was a tedious dissection on both sides secondary to this inflammatory rind and truly should be described as full ureterolysis bilaterally. After we achieved full dissection down to the level of the bladder I turned my attention from the right ureter back to the left. At that time I opened the bladder just proximal and medial to the UO. I was able to incise the bladder in this area and inspect internally and then subsequently incise around the UO and excise it entirely. There were no tumors or other abnormalities appreciated in this area. This entirely removed the ureter and a cuff of bladder. I first inspected the cuff of bladder and the distal ureter and then I transected the ureter approximately 2 cm above the intramural portion. There was no visible tumor or abnormality and I passed off the specimen for as a final/permanent specimen. I then utilized Tavarez scissors to spatulated the ureter laterally. The ureter is quite dilated in this area and there appeared to be adequate intraluminal space. No evidence of residual stricture in this location. Before beginning reimplantation, I did begin closure of the cystotomy. I began at the distalmost aspect and closed utilizing a 3 oh V-Loc suture. After I closed this incision approximately three [address] there was an opening left in the bladder which I thought was adequate for reimplantation of the ureter. I locked my V-Loc suture in this location to prevent unraveling. I also imbricated some muscle over this initial closure point before beginning running anastomosis of the ureter in the bladder. I began in the deepest point of the spatulation and this became the inferior most aspect of the reapproximation of the ureter and bladder. I used a 3 -o Vicryl suture for this purpose. I then utilized a second 3-0 Vicryl from the top of the incision to close the medial aspect of the ureteral reimplant. Before completing the closure we proceeded to place a 7 Maldivian by 26 cm Coloplast double-J stent over a sensor wire. The stent advanced easily and was deployed without difficulty. The curl on the distal aspect was guided into the bladder. Of note, there was excellent urine production through and around the stent immediately upon deployment. We then completed the anastomosis and I utilized the remnant of the 3 oh V-Loc to further imbricate muscle and fat around of the anastomosis and insulate it. After completing the left side I turned my attention back to the right side and performed a similar procedure. We dissected down to the level of the bladder and I transected the mucosa of the bladder just medial and superior to the UO. This allowed internal inspection. I was able to incise around the UO and excised the UO entirely. There was a small papillary lesion protruding from the ureteral orifice and this was incorporated into the specimen. I excised the distal aspect of the ureter and intramural ureter and passed off the table as a permanent specimen. I then took an additional specimen from the remnant of the ureter as a frozen section analysis. A few moments later I was called by pathology and they confirmed that this does not contain malignancy but did have chronic appearing inflammation. I then performed a similar anastomosis to have it performed on the left. We utilized a 3 OV lock to begin closure of the cystotomy until the defect had been reduced to a size that was appropriate for reimplant. I locked the 3-0 V-Loc in this location to prevent unraveling and then began to imbricate this area with some muscle. I then performed a 2 armed anastomosis utilizing 3 oh V-Loc sutures after spatulating the ureter with robotic Tavarez scissors. After completing the first half of the anastomosis I placed a new 7 Maldivian by 26 cm double-J Coloplast stent. Again the stent advanced the kidney without difficulty and was deployed without issue. There was good urine draining through and around the stent and the distal aspect of the stent was guided into the bladder. We then completed the anastomosis. I again utilized the remnant of the 3 OV lock suture to further insulate the anastomosis with fat and muscle. The bladder was irrigated gently there was mild leak around the anastomoses on each side but very much acceptable. At that time I used a 3 oh V-Loc on the right to reapproximate the peritoneum and cover the anastomosis and the dissected portion of the ureter. I performed the same procedure on the left but chose a 2 oh V-Loc for its longer length. A LUISA drain was guided into the left lateralmost robotic port and sutured in place with a 3-0 nylon. The other ports were extracted. Fascia was closed in all ports aside from the drain utilizing a 0 Vicryl on a UR 6 needle. Skin was closed with 4-0 Monocryl. All incisions were pretreated with Exparel and Marcaine. Dermabond was placed over the incisions and the case was concluded. He was reversed of anesthesia and taken to the recovery room in stable condition. Of note, he will keep a Gross catheter in place for 1 week and then have a cystogram. We will plan to leave the stents in place for 6 weeks. Drain removal when output is appropriate. Leila Schwarz assisted throughout the entire case from incision to closure and all vinson portions. I attest to the content of the Intraoperative Record and any orders documented therein. Any exceptions are noted below.
--- NOTE | 2025-03-28 15:59 | XRay Report ---
KUB HISTORY: check stent position COMPARISON STUDY: CT 07/21/2024. FINDINGS: There are interval bilateral ureteral stents which appear well positioned. There is another catheter overlying the central low pelvis. There is moderate retained stool. No bowel obstruction se en. IMPRESSION: 1. Bilateral ureteral stents appear well-positioned. 2. There is another catheter overlying the central low pelvis. Clinical correlation is recommended. ACT 112: Negative or not required by law. The above report was generated using voice recognition software. It may contain grammatical, syntax o r spelling errors. Electronically signed by: Mason Rivera M.D. 03/28/2025 3:58 PM
[2025-03-28 16:17] LABS: Hematocrit (blood only) 40.2 % (42.0-52.0); Hemoglobin 13.3 g/dl (14.0-18.0); Mean Corpuscular Hemoglobin 30.4 pg (25.0-34.0); Mean Corpuscular Hgb Conc 33.1 g/dL (32.0-36.0); Mean Corpuscular Volume 91.8 fL (80.0-100.0); Mean Platelet Volume 8.8 fL (9.4-12.4); Platelet Count 252 K/uL (130-400); RDW Coefficient of Variation 13.2 % (11.5-14.5); RDW Standard Deviation 44.8 fL (36.4-46.3); Red Blood Count 4.38 M/uL (4.70-6.10); White Blood Count 8.48 K/ul (4.8-10.8)
[2025-03-28 16:36] LABS: BUN Creatinine Ratio 13.1 (10-20); Calcium 8.4 mg/dl (8.6-10.3); Creatinine Clr Calc Pharmacy 39.9 ml/min; Potassium 4.5 mmol/L (3.5-5.1)
[2025-03-28 16:37] LABS: Basophils # (auto) 0.03 K/uL (0.00-0.20); Basophils % (auto) 0.4 %; Eosinophils # (auto) 0.01 K/uL (0.00-0.50); Eosinophils % (auto) 0.1 %; Immature Granulocytes # (auto) 0.02 K/uL (0.01-0.20); Immature Granulocytes % (auto) 0.2 %; Lymphocytes # (auto) 0.62 K/uL (1.20-3.40); Lymphocytes % (auto) 7.3 %; Monocytes # (auto) 0.09 K/uL (0.11-0.59); Monocytes % (auto) 1.1 %; Neutrophils # (auto) 7.71 K/uL (1.40-6.50); Neutrophils % (auto) 90.9 %
[2025-03-28] MEDS ORDERED: HYDROmorphone INJ 0.5 MG/0.5 ML SYR IV PRN (16:54)
[2025-03-28] MEDS ORDERED: ALBUTEROL HFA 8 GM INHALER INH PRN (16:54)
[2025-03-28] MEDS ORDERED: UMECLIDINIUM/VILANTEROL 62.5/25MCG 7 PUFFS/INHALER INH PRN (16:54)
[2025-03-28] MEDS: SODIUM CHLORIDE 0.9% 1,000 ML IV SCH (17:17)
--- NOTE | 2025-03-28 17:29 | Anesthesiology Progress Note ---
Date of Service March 28, 2025 Anesthesia Post Procedure Vital Signs Vital Signs: Temp Pulse Pulse Resp BP Pulse Ox O2 Del Method 03/28/25 17:18 70 16 143/82 H 93 Room Air 03/28/25 16:40 36.1 C L 73 16 154/90 H 94 Room Air 03/28/25 16:25 83 14 131/81 93 Room Air 03/28/25 16:15 36 C L 78 23 143/88 H 94 Room Air 03/28/25 16:05 82 14 144/85 H 93 Room Air 03/28/25 15:55 86 17 146/87 H 94 Room Air 03/28/25 15:45 77 12 144/78 H 97 Oxymask 03/28/25 15:36 36 C L 93 H 14 138/94 99 Oxymask 03/28/25 09:50 36.4 C L 54 L 18 141/86 H 97 Room Air 03/28/25 09:29 Room Air O2 Flow Rate 03/28/25 17:18 03/28/25 16:40 03/28/25 16:25 03/28/25 16:15 03/28/25 16:05 03/28/25 15:55 03/28/25 15:45 5 03/28/25 15:36 5 03/28/25 09:50 03/28/25 09:29 Transfer of Care Handoff Completed per policy Notes Mental Status: alert / awake / arousable and participated in evaluation Patient Amnestic to Procedure: Yes Nausea / Vomiting: adequately controlled Pain: adequately controlled Airway Patency, RR, SpO2: stable & adequate BP & HR: stable & adequate Hydration State: stable & adequate Anesthetic Complications: no major complications apparent and Pt Satisfied with anesthetic care
[2025-03-28] MEDS: ACETAMINOPHEN 325 MG TAB PO SCH (18:40)
[2025-03-28] MEDS: TAMSULOSIN HCL 0.4 MG CAP PO SCH (20:09)
[2025-03-28] MEDS: DOCUSATE SODIUM 100 MG CAP PO SCH (20:09)
[2025-03-28] MEDS: oxyCODONE HCL IR 5 MG TAB (IMMEDIATE RELEASE) PO PRN (20:09)
[2025-03-29 06:35] LABS: Basophils # (auto) 0.08 K/uL (0.00-0.20); Basophils % (auto) 0.9 %; Eosinophils % (auto) 1.1 %; Hematocrit (blood only) 35.3 % (42.0-52.0); Hemoglobin 11.9 g/dl (14.0-18.0); Immature Granulocytes # (auto) 0.03 K/uL (0.01-0.20); Immature Granulocytes % (auto) 0.3 %; Lymphocytes # (auto) 0.65 K/uL (1.20-3.40); Lymphocytes % (auto) 7.1 %; Mean Corpuscular Hemoglobin 30.1 pg (25.0-34.0); Mean Corpuscular Hgb Conc 33.7 g/dL (32.0-36.0); Mean Corpuscular Volume 89.1 fL (80.0-100.0); Monocytes # (auto) 0.84 K/uL (0.11-0.59); Monocytes % (auto) 9.2 %; Neutrophils # (auto) 7.41 K/uL (1.40-6.50); Neutrophils % (auto) 81.4 %; Platelet Count 235 K/uL (130-400); RDW Coefficient of Variation 13.3 % (11.5-14.5); RDW Standard Deviation 43.8 fL (36.4-46.3); Red Blood Count 3.96 M/uL (4.70-6.10); White Blood Count 9.11 K/ul (4.8-10.8)
[2025-03-29 06:48] LABS: BUN Creatinine Ratio 13.9 (10-20); Calcium 7.9 mg/dl (8.6-10.3); Creatinine Clr Calc Pharmacy 42.1 ml/min; Potassium 4.4 mmol/L (3.5-5.1)
[2025-03-29] MEDS: oxyCODONE HCL IR 5 MG TAB (IMMEDIATE RELEASE) PO PRN (08:22)
--- NOTE | 2025-03-29 09:29 | Urology Progress Note ---
Date of Service March 29, 2025 Assessment & Plan (1) Ureteral stricture: Plan Postop day #1 status post bilateral extensive ureterolysis with distal ureterectomy and bilateral ureteral reimplant Progressing appropriately Uncertain of the ready for discharge home today but will continue to ambulate advance diet Hopeful discharge home tomorrow morning Admission and Anticipated Discharge Date Admission Date: March 28, 2025 Subjective Progressing appropriately after his surgery yesterday Ambulatory Pain is relatively well-controlled Clear urine Low drain output Labs all stable, vitals all stable Physical Exam Physical Exam: Incisions appropriate, drain serosanguineous Urine clear Results & Data Vital Signs (Past 12 Hours) Vital Signs Temp Pulse Resp BP Pulse Ox O2 Del Method 03/29/25 07:20 36.6 C 66 18 114/74 97 Room Air 03/29/25 04:10 36.5 C 79 156/85 H 98 Room Air 03/28/25 23:00 36.3 C L 70 16 133/78 96 Room Air PG Care Time/CCT Total # of Minutes Spent Total Time Spent with Patient: Total time spent is greater than 50% in coordination of care (as documented) at patient's floor/unit and/or counseling patient: Coding Level of Care Code None Diagnoses Ureteral stricture N13.5
[2025-03-30 05:02] VITALS: RESP 16
[2025-03-30 07:59] VITALS: BP 119/74; PULSE 64; TEMP 98.1; O2SAT 94
[2025-03-30 08:17] LABS: Basophils # (auto) 0.04 K/uL (0.00-0.20); Basophils % (auto) 0.5 %; Eosinophils # (auto) 0.32 K/uL (0.00-0.50); Eosinophils % (auto) 4.2 %; Hematocrit (blood only) 37.5 % (42.0-52.0); Hemoglobin 12.8 g/dl (14.0-18.0); Immature Granulocytes # (auto) 0.02 K/uL (0.01-0.20); Immature Granulocytes % (auto) 0.3 %; Lymphocytes # (auto) 0.75 K/uL (1.20-3.40); Lymphocytes % (auto) 9.7 %; Mean Corpuscular Hemoglobin 30.7 pg (25.0-34.0); Mean Corpuscular Hgb Conc 34.1 g/dL (32.0-36.0); Mean Corpuscular Volume 89.9 fL (80.0-100.0); Monocytes # (auto) 0.64 K/uL (0.11-0.59); Monocytes % (auto) 8.3 %; Neutrophils # (auto) 5.93 K/uL (1.40-6.50); Platelet Count 238 K/uL (130-400); RDW Coefficient of Variation 13.2 % (11.5-14.5); RDW Standard Deviation 43.8 fL (36.4-46.3); Red Blood Count 4.17 M/uL (4.70-6.10)
--- NOTE | 2025-03-30 08:30 | Urology Progress Note ---
Date of Service March 30, 2025 Assessment & Plan (1) Ureteral stricture: (2) Hydronephrosis: (3) Carcinoma in situ of bladder: Plan Postop day #2 status post robotic bilateral ureteral reimplant and distal ureterectomy with ureterolysis Seems to be progressing appropriately He is anxious to go home We will add oxybutynin XL for bladder spasm managementdiscussed dry mouth and constipation risks He will continue Colace Most of antibiotics and pain medication at home Will plan for discharge home today and he can remove his drain before leaving Hemoglobin stable, creatinine pending right now Admission and Anticipated Discharge Date Admission Date: March 28, 2025 Subjective Subjectively doing relatively well He does have pain but he is ambulatory and is tolerating his pain well Biggest complaint is really been bladder spasms These have occurred intermittently over the past 24 hours He has had excellent urine output and relatively low drain output He has been passing flatus and tolerating a diet Physical Exam Physical Exam: Incisions all appropriate Urine clear, LUISA serosanguineous Results & Data Vital Signs (Past 12 Hours) Vital Signs Temp Pulse Pulse Resp BP Pulse Ox O2 Del Method 03/30/25 07:57 36.7 C 64 16 119/74 94 Room Air 03/30/25 04:00 36.6 C 73 73 16 147/90 H 95 Room Air 03/29/25 21:38 36.4 C L 76 18 168/95 H 97 Room Air 03/29/25 21:00 Room Air PG Care Time/CCT Total # of Minutes Spent Total Time Spent with Patient: Total time spent is greater than 50% in coordination of care (as documented) at patient's floor/unit and/or counseling patient: Coding Level of Care Code None Diagnoses Ureteral stricture N13.5 Hydronephrosis N13.30 Carcinoma in situ of bladder D09.0
[2025-03-30] MEDS: HYDROmorphone INJ 0.5 MG/0.5 ML SYR IV PRN (08:32)
--- NOTE | 2025-03-30 08:33 | Discharge Summary ---
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 He has done quite well in this regard but is developed scarring and stricturing of his distal ureters with subsequent hydronephrosis and elongation of the ureters He has failed efforts at endoscopic management and is presenting today for definitive management in the form of distal ureterectomy and ureteral reimplant bilaterally The short segment of ureteral stricture should not necessitate psoas hitch but should accommodate direct reimplant Principal Diagnosis hydronephrosis Discharge Data Allergies Allergy/AdvReac Type Severity Reaction Status Date / Time tramadol Allergy Mild Nausea Verified 03/28/25 09:26 Procedures Performed Operation Date: 03/28/25 10:40 Actual Procedures p Robotic Assisted Laparoscopic Bilateral Distal Ureterectomy with Bilateral Ureteral Reimplant, Ureterolysis(Not Applicable) - Anand Navarro MD Hospital Course (1) Ureteral stricture: (2) Hydronephrosis: (3) Carcinoma in situ of bladder: Plan Patient admitted underwent robotic bilateral distal ureterectomy with extensive ureterolysis and ureteral reimplantdetails of the procedure as dictated previously in operative report. He progressed appropriately postoperatively and his labs were stable. He had good urine output and was ambulatory and tolerating a diet. He was passing flatus. His drain was removed prior to discharge home and he was discharged on postop day #2 in stable condition. There were no complications and he tolerated the entire hospitalization well. Total Time Total Time Spent Total Time Spent (In Minutes): 20 Discharge Plan Discharge Items Patient Disposition: Home - Self-Care Reason For Visit: Hydronephrosis with Ureteral Stricture, Not Elsewh Discharge Diagnosis: Hydronephrosis with ureteral stricture Activity: Per Instructions section Lifting: No more than 10 pounds Bathing Comment: Okay to shower after discharge, no tub bath or soaking Sexual Activity: Wait until after follow-up appointment Exercise/Sports: Wait until after follow-up appointment Non-emergency contact: Urologist Call non-emergency contact if: you have a fever, your temperature is above 101, your wound has increased redness, your wound has increased drainage and your wound pain has increased Follow-up/Referrals: Loni Ware DO [Primary Care Provider] - Diet: Regular Addtl Attending Provider Instructions: Please take all medications as prescribed and keep all follow-ups as scheduled. Please call our office at [phone] with any questions, concerns or need to reschedule appointments for any reason. We are happy to assist you. Activity: We recommend having someone with you for the first few days after surgery to help care for you. For the first 2 weeks after surgery, we would like you to get up and walk around your house. However, we recommend limit physical activity that would increase your heart rate. This will allow your body to rest and heal. Take naps if you feel tired. Don't lift anything heavier than 10 pounds, mow the law or ride a bicycle until your follow-up appointment. Please avoid long car rides. Home Care: Unless directed otherwise, drink 6 to 8 glasses of water a day (enough to keep your urine light colored). This will also help keep a healthy flow of urine. We recommend using a stool softener for the first two weeks to avoid constipation. While you have a ureteral stent in place: Some discomfort is normal. Certain movements may trigger pain or a feeling diamond t you need to urinate. You may also feel mild soreness or pressure before or during urination. These symptoms should go away a few days after the stent is removed. Your urine may be slightly pink or red. This is due to bleeding caused by minor irritation from the stent. This may happen on and off while you have the stent, it is not harmful and is to be expected. Medication to help minimize discomfort or bladder spasms, or to prevent infection may be prescribed. Take this as directed. Drink plenty of fluids to help flush out your urinary tract. If you go home with a catheter, wash with soapy water and a fresh washcloth twice daily. We recommend mild bar soap such as Dial or Dove. Gross Catheter or Suprapubic Catheter care: Keep the catheter well secured with either a leg back or leg strap with large bag. Empty your bag when it's about half full. You may notice some blood in the bag. This is normal after surgery and while the catheter is in place. Use mild soap (such as Dove or Dial) and water to wash the catheter and the head of your penis daily, or more frequently if needed. Return to your normal diet, we encourage good protein intake to promote healing. You may shower as normal. Please avoid tub baths or soaking until catheter removed and incisions well healed. Wearing sweat pants while you have the catheter is recommended, they will be more comfortable. Follow-up Your follow up appointments for having your catheter removed, and follow up with your physician should already be scheduled. If you have any questions regarding this, please contact our office. Your final pathology report will be discussed at your physician follow-up appointment. Call [facility] [place] [facility] at [phone] right away if you have any of the following: Chest pain or trouble breathing (call 911 or go to the hospital) Fever of 101F or higher, uncontrolled vomiting Heavy bleeding, clots, or bright red blood from the catheter Catheter that falls out or stops draining Foul-smelling discharge from your catheter Redness, swelling, warmth, or increased pain at your incision site Drainage, pus, or bleeding from your incision Pending Studies at Discharge: Yes Stand-Alone Forms: My [facility] Lorena G[place], Smoking Cessation Medications and DC Order Prescriptions: New cefdinir 300 mg capsule 300 mg PO BID 5 Days Qty: 10 0RF tramadol 100 mg tablet 100 mg PO BID PRN (Reason: pain) Qty: 30 0RF oxybutynin chloride 5 mg tablet extended release 24hr 5 mg PO DAILY Qty: 10 0RF Continued albuterol sulfate 90 mcg/actuation HFA aerosol inhaler 2 puff inhalation Q6H PRN (Reason: shortness of breath or wheezing) Qty: 18 3RF diclofenac sodium [Arthritis Pain (diclofenac)] 1 % gel 4 g topical QID PRN (Reason: pain) Qty: 100 0RF Rx Instructions: apply to neck for pain (DME) compress.stocking,knee,reg,med Misc See Rx Instructions .ROUTE .MEDSUPPLY Qty: 2 0RF Rx Instructions: Medium compression 20-30mmHG; Dx: I87.2 ergocalciferol (vitamin D2) 1,250 mcg (50,000 unit) capsule 50,000 unit PO WEEKLY Qty: 12 0RF Anoro Ellipta 62.5-25 mcg/actuation blister with device 1 inh inhalation QAM PRN (Reason: Shortness Of Breath Or Wheezing) acetaminophen [Tylenol Ex Str Rapid Release] 500 mg Tablet 1,000 mg PO BID PRN (Reason: Pain (Scale Score 1-3)) tamsulosin 0.4 mg capsule 0.4 mg PO HS Discharge Orders: Discharge Order (Routine); Ordered 03/30/25 Ordered By: Anand Navarro Admission Data Admit Date/Time: 03/28/25 15:37 Attending Provider: Anand Navarro Admit Provider: Anand Navarro Primary Care Provider: Loni Ware Coding Level of Care Code 77465 IN/OBS DISCH 30 MIN/LESS Diagnoses Ureteral stricture N13.5 Hydronephrosis N13.30 Carcinoma in situ of bladder D09.0
[2025-03-30 08:42] LABS: Calcium 8.3 mg/dl (8.6-10.3); Creatinine Clr Calc Pharmacy 61.3 ml/min; Potassium 4.2 mmol/L (3.5-5.1)
[2025-03-30] MEDS: OXYBUTYNIN CHLORIDE XL 5 MG TABCR PO ONE (09:33)
== END 2025-03-30 12:08 | disposition home or self-care (01) ==
LOC: ASU 09:03 → 3N 15:37 → INTOOBSV 15:37